=== PATIENT | female | born 1980 | race Asian ===

== ENCOUNTER 2020-09-22 13:37 | Inpatient (IN) ==
[2020-09-22] MEDS ORDERED: ACETAMINOPHEN 1,000 MG/100 ML VIAL IV STA (14:20)
[2020-09-22] MEDS ORDERED: SODIUM CHLORIDE 0.9% 1000ML 2,000 ML IV ONE (14:20)
[2020-09-22] MEDS ORDERED: KETOROLAC TROMETHAMINE 15 MG/ML VIAL IV STA (14:20)
[2020-09-22] MEDS ORDERED: FAMOTIDINE 20MG IV PUSH 20 MG/5 ML SYR IV STA (14:22)
[2020-09-22] MEDS ORDERED: guaiFENesin 600 MG TABCR PO STA (14:27)
[2020-09-22] MEDS ORDERED: IPRATROPIUM BROMIDE/ALBUTEROL respimat INH INH STA (14:27)
[2020-09-22 14:54] LABS: Appearance Urine Clear (Clear); Bacteria Urine Automated Negative (Negative); Bilirubin Urine Negative (Negative); Blood Urine 2+ (Negative); Color Urine Dark Yellow; Epithelial Cell Urine Auto >30 /lpf (0-5); Glucose Urine UA Negative (Negative); Ketones Urine 3+ (Negative); Leukocyte Esterase Urine Negative (Negative); Nitrite Urine Negative (Negative); Protein Urine 1+ (Negative); Specific Gravity Urine 1.023 (1.000-1.030); Urobilinogen Urine Negative (Negative); pH Urine 5.5 (4.5-7.5)
--- NOTE | 2020-09-22 15:00 | XRay Report ---
SINGLE VIEW CHEST CLINICAL HISTORY: Atypical chest pain. Breast cancer. Reported history of right middle lobe resectio n. FINDINGS: An AP, portable, upright chest radiograph is obtained No prior studies are available for co mparison at the time of dictation. The cardiomediastinal silhouette is unremarkable. There is postope rative change and volume loss consistent with the reported history of right middle lobe resection. rspace consolidation is present at the right lung base. No large pleural effusion or pneumothorax is identified. Nipple shadows project over both lung bases. The bony thorax is grossly intact. IMPRESSION: 1. Right basilar consolidation is typical for pneumonia. Clinical correlation will be required and ra diographic follow-up to resolution is recommended. 2. Postoperative change and volume loss is consistent with the reported history of right middle lobe resection. ACT 112: Negative or not required by law. Electronically signed by: Mathew Medina M.D. 09/22/2020 2:59 PM
[2020-09-22 16:06] LABS: Hematocrit (blood only) 37.9 % (37-47); Mean Corpuscular Hemoglobin 30.2 pg (25-34); Mean Corpuscular Hgb Conc 34.3 g/dL (32-36); Mean Corpuscular Volume 87.9 fL (80-100); Mean Platelet Volume 10.1 fL (7.4-10.4); Platelet Count 211 K/uL (130-400); RDW Coefficient of Variation 13.1 % (11.5-14.5); RDW Standard Deviation 42.5 fL (36.4-46.3); Red Blood Count 4.31 M/uL (4.2-5.4); White Blood Count 11.66 K/uL (4.8-10.8)
[2020-09-22 16:31] LABS: Pregnancy Test, Serum Negative (Negative)
--- NOTE | 2020-09-22 16:38 | Emergency Department Note ---
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 She denies any known COVID-19 exposures. She does report getting the COVID-19 vaccine 3 months ago. She reports she recently returned from a 2-month visit to [facility]. She reports while she was there she had a routine follow-up with her bid manager and had sputum culture performed which grew M. abscessus. The patient reports that they had recommended an antibiotic regimen which includes a macrolide, amikacin, BRISEIDA phase amine and imipenem which she was to arrange for treatment upon return to the . She reports she did not have symptoms at the time of her routine follow-up. She reports tightness and pain in her chest with coughing. She de nies any history of blood clots in her legs or lungs. She does report several months ago prior to leaving for [place] she did have tick exposures and was seen at urgent care and received a one-time dose of an antibiotic, presumably a prophylactic dose of doxycycline. On arrival patient is uncomfortable but no acute distress, febrile to 38.5 with heart rate in the 120s and vital signs otherwise stable. On exam the patient does have rhonchi of bilateral lower lung carvalho. Abdomen is benign. EKG without overt acute ischemia. CXR with right lower lobe consolidation. WBC 11.6K. H/H and platelets within normal limits. Chemistry without metabolic acidosis. Lactate 1.2, within normal limits. Phosphorus 1.4 with repletion initiated. Electrolytes otherwise without significant abnormality. LFTs unremarkable. Troponin negative/undetectable. Lipase not elevated. Procalcitonin is not elevated. UA without convincing evidence of infection. Lyme screen was negative. Anaplasma smear was also negative. COVID-19 PCR was negative. CTA of the chest was negative for PE. However note is made of "dense consolidation within the right lower lobe posteriorly with scattered tree-in-bud nodular opacities within the bilateral mid to lower lung zones and well as partial opacification the right lower lobe bronchi. Additional mild bilateral hilar lymphadenopathy is noted. Chronic bronchiectasis within the lingula. Given dense pneumonia in the setting of the patient's recent sputum culture reas onable admit the patient for IV antibiotics. Upon reevaluation the patient did report feeling somewhat improved after initial IV fluid hydration and antipyretics. Heart rate had improved and fever had defervesced. Patient is in agreement with plan for admission. Will initiate empiric antibiotics. Culture results obtained in [place] were reviewed with pharmacy and will proceed with treatment with cefoxitin, amikacin, and azithromycin until case can be discussed with infectious disease for additional recommendations. Case was discussed with Dr. [facility], who will evaluate the patient for admission. Triage Nursing notes reviewed and agree them. Prior medical records reviewed Vital Signs: reviewed and remarkable for fever/tachycardia. Differential diagnosis: Reactive airway disease, pneumonia, pneumothorax, COPD, CHF, infections, cardiac ischemia, pulmonary embolism, musculoskeletal, gastrointestinal, as well as other pathologies. ER treatment provided: See below. Diagnostics interpreted by me: ECG: Sinus tachycardia, 102 bpm, no ectopy, T wave inversions inferior and anterior laterally. No overt ST elevation or depression, QTC 450, QRS 74. No prior EKGs for comparison. Cardiac Monitoring: An order for continuous cardiac monitoring was placed and demonstrated sinus tachycardia, 102 bpm, no ectopy. Laboratory studies: See below Imaging studies: See below Consultation(s): Dr. [facility], who will evaluate the patient for admission. HPI: The patient is a pleasant 40-year-old woman with a past medical history of breast cancer on tamoxifen, bronchiectasis and MAC infection, history of lobectomy who presents to the emergency department for evaluation of cough, congestion, fevers and body aches over the past 5 days. She denies any known COVID-19 exposures. She does report getting the COVID-19 vaccine 3 months ago. She reports she recently returned from a 2-month visit to [facility]. She reports while she was there she had a routine follow-up with her bid manager and had sputum culture performed which grew M. abscessus. The patient reports that they had recommended an antibiotic regimen which includes a macrolide, amikacin, BRISEIDA phase amine and imipenem which she was to arrange for treatment upon return to the [place]. She reports she did not have symptoms at the time of her routine follow-up. She reports tightness and pain in her chest with coughing. She denies any history of blood clots in her legs or lungs. She does report several months ago prior to leaving for [place] she did have tick exposures and was seen at urgent care and received a one-time dose of an antibiotic, presumably a prophylactic dose of doxycycline. ROS: See above HPI for pertinent positives & negatives. A total of 10 systems reviewed and were otherwise negative. PAST MEDICAL HISTORY:See Below PAST SURGICAL HISTORY:See Below FAMILY HISTORY:See Below SOCIAL HISTORY:See Below HOME MEDICATIONS:See Below ALLERGIES:See Below VITALS:See Below PHYSICAL EXAMINATION: GENERAL: Awake, alert, fatigued-appearing, in no distress HENT: Normocephalic, atraumatic. Oropharynx with dry mucous membranes and otherwise unremarkable. EYES: Normal conjunctiva. Sclera non-icteric. NECK: Supple. No nuchal rigidity. FROM. No JVD. RESPIRATORY: Rhonchi of bilateral lower lung carvalho. CARDIAC: Tachycardic rate, normal rhythm. Extremities warm and well perfused. Pulses equal. ABDOMEN: Soft, non-distended. No tenderness to palpation. No rebound or guarding. No masses. RECTAL: Deferred. MUSCULOSKELETAL: Chest examination reveals no tenderness. The back is symmetrical on inspection without obvious abnormality. There is no CVA tenderness to palpation. No joint edema. LOWER EXTREMITIES: Calves are equal size bilaterally and non-tender. No edema. No discoloration. NEURO: Normal sensorium. No sensory or motor deficits noted. SKIN: No rash or jaundice noted. ED COURSE: Critical Care: I have personally spent greater than 35 minutes of critical care time in the direct management of this patient. This includes bedside care, interpretation of diagnostic studies, and testing, discussion with consultants, patient, and family members, and other required patient management activities. This 35 minutes is in excess of all separately billable procedures. Bertin Parkinson MD Past Med/Surg History Medical History Bronchiectasis Encounter for immunization History of MAC infection Surgical History History of left mastectomy History of lobectomy of lung Family History Father Colorectal cancer Aunt Uterine cancer paternal Grandfather (Maternal) Cancer Stomach Cancer Denies family history of Ovarian cancer Breast cancer Social History Smoking Status: Never smoker Hx Alcohol Use: No Hx Substance Use: No Feels Safe at Home: Yes Allergies Allergies Allergy/AdvReac Type Severity Reaction Status Date / Time No Known Allergies Allergy Verified 09/22/20 15:59 Home Meds Home Medications Medication Instructions Recorded Confirmed tamoxifen 20 mg tablet 20 mg PO DAILY 04/28/20 09/22/20 ascorbic acid (vitamin C) 1,000 mg 1 g PO DAILY 09/22/20 09/22/20 tablet (Vitamin C) cholecalciferol (vitamin D3) 125 125 mcg PO DAILY 09/22/20 09/22/20 mcg (5,000 unit) tablet (Vitamin D3) Results & Data (ED) Vital Signs Vital Signs - 24 hr 09/22/20 13:42 09/22/20 15:41 09/22/20 17:18 Temperature 38.5 C H 37.7 C H Temperature Source Temporal Artery Scan Oral Pulse Rate 121 H Pulse Rate [Finger] 113 H 99 H Pulse Rate from SpO2 Sensor Pulse Rhythm Regular Pulse Strength Normal Respiratory Rate 20 24 22 Respiratory Effort / Characteristics Non-Labored Respiratory Depth Normal Respiratory Pattern Regular Blood Pressure 121/71 Blood Pressure [Left Arm] 103/62 82/45 L Blood Pressure Mean 87 Blood Pressure Mean [Left Arm] 75 57 Blood Pressure Position Sitting Pulse Oximetry 93 96 93 Oxygen Delivery Method Room Air Room Air Room Air Sepsis Recent Fever Within 48 Hours Yes Sepsis New/Unexplained Change in Mental Status No Sepsis Action Taken by Nursing Physician Notified 09/22/20 18:01 09/22/20 19:00 09/22/20 19:19 Temperature Temperature Source Pulse Rate 90 Pulse Rate [Finger] 96 H Pulse Rate from SpO2 Sensor 90 Pulse Rhythm Pulse Strength Respiratory Rate 18 26 H Respiratory Effort / Characteristics Respiratory Depth Respiratory Pattern Blood Pressure 90/59 L 94/55 L Blood Pressure [Left Arm] 94/53 L Blood Pressure Mean 69 68 Blood Pressure Mean [Left Arm] 66 Blood Pressure Position Pulse Oximetry 91 97 Oxygen Delivery Method Room Air Sepsis Recent Fever Within 48 Hours Sepsis New/Unexplained Change in Mental Status Sepsis Action Taken by Nursing 09/22/20 20:00 Temperature 37.2 C Temperature Source Oral Pulse Rate Pulse Rate [Finger] 60 Pulse Rate from SpO2 Sensor Pulse Rhythm Pulse Strength Respiratory Rate Respiratory Effort / Characteristics Non-Labored Spontaneous Respiratory Depth Normal Respiratory Pattern Blood Pressure Blood Pressure [Left Arm] Blood Pressure Mean Blood Pressure Mean [Left Arm] Blood Pressure Position Pulse Oximetry 98 Oxygen Delivery Method Room Air Sepsis Recent Fever Within 48 Hours Sepsis New/Unexplained Change in Mental Status Sepsis Action Taken by Nursing Laboratory Data Attestation: I reviewed the patient's lab results. Result diagrams: 09/22/20 15:42 09/22/20 15:42 Lab Results 09/22/20 09/22/20 09/22/20 Range/Units 13:55 15:42 15:42 WBC 11.66 H (4.8-10.8) K/uL RBC 4.31 (4.2-5.4) M/uL Hgb 13.0 (12.0-16.0) g/dL Hct 37.9 (37-47) % MCV 87.9 (80-100) fL MCH 30.2 (25-34) pg MCHC 34.3 (32-36) g/dL RDW Std Deviation 42.5 (36.4-46.3) fL RDW Coeff of Caroline 13.1 (11.5-14.5) % Plt Count 211 (130-400) K/uL MPV 10.1 (7.4-10.4) fL Immature Gran % (Auto) 0.2 % Neut % (Auto) 87.7 % Lymph % (Auto) 9.8 % [place] % (Auto) 2.1 % Eos % (Auto) 0.1 % Baso % (Auto) 0.1 % Neut # (Auto) 10.23 H (1.4-6.5) K/uL Lymph # (Auto) 1.14 L (1.2-3.4) K/uL [place] # (Auto) 0.25 (0.11-0.59) K/uL Eos # (Auto) 0.01 (0-0.5) K/uL Baso # (Auto) 0.01 (0-0.2) K/uL Immature Gran # (Auto) 0.02 (0.00-0.02) K/uL Sodium 135 L (136-145) mmol/L Potassium 3.5 (3.5-5.1) mmol/L Chloride 107 (98-107) mmol/L Carbon Dioxide 21 (21-32) mmol/L Anion Gap 7.0 (3-11) BUN 13 (7-18) mg/dl Creatinine 0.68 (0.6-1.2) mg/dl Est Cr Clr Drug Dosing 89.4 ml/min Est GFR ( Amer) 127.7 ml/min Est GFR (Non-Af Amer) 110.2 ml/min BUN/Creatinine Ratio 19.0 (10-20) Glucose 93 (70-99) mg/dl Lactate (0.4-2.0) mmol/L Calcium 8.9 (8.5-10.1) mg/dl Phosphorus 1.4 L* (2.5-4.9) mg/dl Magnesium 2.1 (1.8-2.4) mg/dl Total Bilirubin 0.9 (0.2-1) mg/dl Direct Bilirubin 0.3 H (0-0.2) mg/dl AST 17 (15-37) U/L ALT 21 (12-78) U/L Alkaline Phosphatase 39 L (45-117) U/L Troponin I < 0.015 (0-0.045) ng/ml Total Protein 7.8 (6.4-8.2) gm/dl Albumin 3.5 (3.4-5.0) gm/dl Globulin 4.3 H (2.5-4.0) gm/dl Albumin/Globulin Ratio 0.8 L (0.9-2) Lipase 74 (73-393) U/L Procalcitonin (0-0.5) ng/ml HCG, Qual (Negative) Urine Color Dark Yellow Urine Appearance Clear (Clear) Urine pH 5.5 (4.5-7.5) Ur Specific [place] 1.023 (1.000-1.030) Urine Protein 1+ H (Negative) Urine Glucose (UA) Negative (Negative) Urine Ketones 3+ H (Negative) Urine Blood 2+ H (Negative) Urine Nitrite Negative (Negative) Urine Bilirubin Negative (Negative) Urine Urobilinogen Negative (Negative) Ur Leukocyte Esterase Negative (Negative) Urine WBC (Auto) 1-5 (0-5) /hpf Urine RBC (Auto) 5-10 H (0-4) /hpf U Hyaline Cast (Auto) 1-5 (0-5) /lpf U Epithel Cells (Auto) >30 H (0-5) /lpf Urine Bacteria (Auto) Negative (Negative) Anaplasma Smear See Comment Lyme Disease IgG Ab (Negative) Lyme Disease IgM Ab (Negative) COVID-19 Eval Order SARS-CoV-2 (PCR) (Negative) 09/22/20 09/22/20 09/22/20 Range/Units 15:42 15:42 15:45 WBC (4.8-10.8) K/uL RBC (4.2-5.4) M/uL Hgb (12.0-16.0) g/dL Hct (37-47) % MCV (80-100) fL MCH (25-34) pg MCHC (32-36) g/dL RDW Std Deviation (36.4-46.3) fL RDW Coeff of Caroline (11.5-14.5) % Plt Count (130-400) K/uL MPV (7.4-10.4) fL Immature Gran % (Auto) % Neut % (Auto) % Lymph % (Auto) % [place] % (Auto) % Eos % (Auto) % Baso % (Auto) % Neut # (Auto) (1.4-6.5) K/uL Lymph # (Auto) (1.2-3.4) K/uL [place] # (Auto) (0.11-0.59) K/uL Eos # (Auto) (0-0.5) K/uL Baso # (Auto) (0-0.2) K/uL Immature Gran # (Auto) (0.00-0.02) K/uL Sodium (136-145) mmol/L Potassium (3.5-5.1) mmol/L Chloride (98-107) mmol/L Carbon Dioxide (21-32) mmol/L Anion Gap (3-11) BUN (7-18) mg/dl Creatinine (0.6-1.2) mg/dl Est Cr Clr Drug Dosing ml/min Est GFR ( Amer) ml/min Est GFR (Non-Af Amer) ml/min BUN/Creatinine Ratio (10-20) Glucose (70-99) mg/dl Lactate (0.4-2.0) mmol/L Calcium (8.5-10.1) mg/dl Phosphorus (2.5-4.9) mg/dl Magnesium (1.8-2.4) mg/dl Total Bilirubin (0.2-1) mg/dl Direct Bilirubin (0-0.2) mg/dl AST (15-37) U/L ALT (12-78) U/L Alkaline Phosphatase (45-117) U/L Troponin I (0-0.045) ng/ml Total Protein (6.4-8.2) gm/dl Albumin (3.4-5.0) gm/dl Globulin (2.5-4.0) gm/dl Albumin/Globulin Ratio (0.9-2) Lipase (73-393) U/L Procalcitonin 0.29 Cancelled (0-0.5) ng/ml HCG, Qual Negative (Negative) Urine Color Urine Appearance (Clear) Urine pH (4.5-7.5) Ur Specific [place] (1.000-1.030) Urine Protein (Negative) Urine Glucose (UA) (Negative) Urine Ketones (Negative) Urine Blood (Negative) Urine Nitrite (Negative) Urine Bilirubin (Negative) Urine Urobilinogen (Negative) Ur Leukocyte Esterase (Negative) Urine WBC (Auto) (0-5) /hpf Urine RBC (Auto) (0-4) /hpf U Hyaline Cast (Auto) (0-5) /lpf U Epithel Cells (Auto) (0-5) /lpf Urine Bacteria (Auto) (Negative) Anaplasma Smear Lyme Disease IgG Ab Negative (Negative) Lyme Disease IgM Ab Negative (Negative) COVID-19 Eval Order Covid19 at [facility] SARS-CoV-2 (PCR) (Negative) 09/22/20 09/22/20 Range/Units 15:45 15:47 WBC (4.8-10.8) K/uL RBC (4.2-5.4) M/uL Hgb (12.0-16.0) g/dL Hct (37-47) % MCV (80-100) fL MCH (25-34) pg MCHC (32-36) g/dL RDW Std Deviation (36.4-46.3) fL RDW Coeff of Caroline (11.5-14.5) % Plt Count (130-400) K/uL MPV (7.4-10.4) fL Immature Gran % (Auto) % Neut % (Auto) % Lymph % (Auto) % [place] % (Auto) % Eos % (Auto) % Baso % (Auto) % Neut # (Auto) (1.4-6.5) K/uL Lymph # (Auto) (1.2-3.4) K/uL [place] # (Auto) (0.11-0.59) K/uL Eos # (Auto) (0-0.5) K/uL Baso # (Auto) (0-0.2) K/uL Immature Gran # (Auto) (0.00-0.02) K/uL Sodium (136-145) mmol/L Potassium (3.5-5.1) mmol/L Chloride (98-107) mmol/L Carbon Dioxide (21-32) mmol/L Anion Gap (3-11) BUN (7-18) mg/dl Creatinine (0.6-1.2) mg/dl Est Cr Clr Drug Dosing ml/min Est GFR ( Amer) ml/min Est GFR (Non-Af Amer) ml/min BUN/Creatinine Ratio (10-20) Glucose (70-99) mg/dl Lactate 1.2 (0.4-2.0) mmol/L Calcium (8.5-10.1) mg/dl Phosphorus (2.5-4.9) mg/dl Magnesium (1.8-2.4) mg/dl Total Bilirubin (0.2-1) mg/dl Direct Bilirubin (0-0.2) mg/dl AST (15-37) U/L ALT (12-78) U/L Alkaline Phosphatase (45-117) U/L Troponin I (0-0.045) ng/ml Total Protein (6.4-8.2) gm/dl Albumin (3.4-5.0) gm/dl Globulin (2.5-4.0) gm/dl Albumin/Globulin Ratio (0.9-2) Lipase (73-393) U/L Procalcitonin (0-0.5) ng/ml HCG, Qual (Negative) Urine Color Urine Appearance (Clear) Urine pH (4.5-7.5) Ur Specific [place] (1.000-1.030) Urine Protein (Negative) Urine Glucose (UA) (Negative) Urine Ketones (Negative) Urine Blood (Negative) Urine Nitrite (Negative) Urine Bilirubin (Negative) Urine Urobilinogen (Negative) Ur Leukocyte Esterase (Negative) Urine WBC (Auto) (0-5) /hpf Urine RBC (Auto) (0-4) /hpf U Hyaline Cast (Auto) (0-5) /lpf U Epithel Cells (Auto) (0-5) /lpf Urine Bacteria (Auto) (Negative) Anaplasma Smear Lyme Disease IgG Ab (Negative) Lyme Disease IgM Ab (Negative) COVID-19 Eval Order SARS-CoV-2 (PCR) NEGATIVE (Negative) Administered Medications Azithromycin 500 mg/ Dextrose 255 mls @ 127.5 mls/hr IV NOW STA Stop: 09/22/20 21:12 Last Admin: 09/22/20 19:58 Dose: 127.5 mls/hr Documented by: [id number] Lactated Ringer's (Lr) 1,000 mls @ 125 mls/hr IV .Q8H PORTER Stop: 10/22/20 19:14 Last Admin: 09/22/20 19:58 Dose: 125 mls/hr Documented by: [id number] Discontinued Medications Albuterol (Ipratropium Spencer/Albuterol Respimat Inh) 2 puffs INH NOW STA Stop: 09/22/20 14:28 Last Admin: 09/22/20 15:32 Dose: 2 puffs Documented by: [id number] Guaifenesin (Guaifenesin 600 Mg Tabcr) 600 mg PO NOW STA Stop: 09/22/20 14:28 Last Admin: 09/22/20 15:34 Dose: 600 mg Documented by: [id number] Sodium Chloride (Nss 1000ml) 2,000 mls @ 999 mls/hr IV .Q2H1M ONE Stop: 09/22/20 16:20 Last Infusion: 09/22/20 17:15 Dose: 0 mls/hr Documented by: [id number] Admin: 09/22/20 15:37 Dose: 999 mls/hr Documented by: [id number] Acetaminophen (Ofirmev) 1,000 mg in 100 mls @ 400 mls/hr IV NOW STA Stop: 09/22/20 14:34 Last Infusion: 09/22/20 15:59 Dose: 0 mls/hr Documented by: [id number] Admin: 09/22/20 15:34 Dose: 400 mls/hr Documented by: [id number] Famotidine (Pepcid 20mg Iv Push) 20 mg in 5 mls @ 2.5 mls/min IV NOW STA Stop: 09/22/20 14:23 Last Admin: 09/22/20 15:32 Dose: 2.5 mls/min Documented by: [id number] Potassium Phosphate 6 mmol/ (Sodium Chloride) 102 mls @ 88 mls/hr IV ONE ONE Stop: 09/22/20 18:39 Last Infusion: 09/22/20 19:59 Dose: 0 mls/hr Documented by: [id number] Admin: 09/22/20 18:27 Dose: 88 mls/hr Documented by: [id number] Lactated Ringer's (Lr) 1,000 mls @ 999 mls/hr IV .Q1H1M ONE Stop: 09/22/20 18:24 Last Infusion: 09/22/20 19:59 Dose: 0 mls/hr Documented by: [id number] Admin: 09/22/20 18:26 Dose: 999 mls/hr Documented by: [id number] Cefoxitin Sodium 2,000 mg/ (Dextrose) 60 mls @ 120 mls/hr IV NOW STA Stop: 09/22/20 19:41 Last Infusion: 09/22/20 20:32 Dose: 0 mls/hr Documented by: [id number] Admin: 09/22/20 19:58 Dose: 120 mls/hr Documented by: [id number] Amikacin Sulfate 765 mg/ (Dextrose) 253.06 mls @ 250 mls/hr IV NOW STA Stop: 09/22/20 20:13 Last Admin: 09/22/20 20:35 Dose: 250 mls/hr Documented by: [id number] Ioversol (Optiray 320 125ml) 119 ml IV ONCE ONE Stop: 09/22/20 17:21 Last Admin: 09/22/20 17:20 Dose: 1 ml Documented by: [id number] Ketorolac Tromethamine (Ketorolac Tromethamine 15 Mg/Ml Vial) 15 mg IV NOW STA Stop: 09/22/20 14:21 Last Admin: 09/22/20 15:34 Dose: 15 mg Documented by: [id number] Potassium Phosphate (Pot Phosphate Monobasic W/ Sod Tab) 2 tab PO NOW STA Stop: 09/22/20 17:11 Last Admin: 09/22/20 18:00 Dose: 2 tab Documented by: [id number] Imaging Data Radiologist's Impression: Chest X-Ray 09/22/20 14:21 SINGLE VIEW CHEST CLINICAL HISTORY: Atypical chest pain. Breast cancer. Reported history of right middle lobe resection. FINDINGS: An AP, portable, upright chest radiograph is obtained No prior studies are available for comparison at the time of dictation. The cardiomediastinal silhouette is unremarkable. There is postoperative change and volume loss consistent with the reported history of right middle lobe resection. Airspace consolidation is present at the right lung base. No large pleural effusion or pneumothorax is identified. Nipple shadows project over both lung bases. The bony thorax is grossly intact. IMPRESSION: 1. Right basilar consolidation is typical for pneumonia. Clinical correlation will be required and radiographic follow-up to resolution is recommended. 2. Postoperative change and volume loss is consistent with the reported history of right middle lobe resection. ACT 112: Negative or not required by law. Electronically signed by: Mathew Medina M.D. 09/22/2020 2:59 PM Chest CTA 09/22/20 14:24 CHEST CTA for PULMONARY ARTERIES CT DOSE: 257.93 mGy.cm HISTORY: fevers, cough, mucus, cp, h/o MAC, BRCA, r/o PE TECHNIQUE: Multiaxial CT images of the chest were performed following the intravenous administration of contrast to evaluate the pulmonary arteries. Maximal intensity projection images were also obtained. A dose lowering technique was utilized adhering to the principles of ALARA. COMPARISON STUDY: Chest 09/22/2020. FINDINGS: Normal caliber thoracic aorta with no evidence for dissection. The heart is normal in size. No pleural or pericardial effusions. No filling defects within the pulmonary arteries to suggest a pulmonary embolus. No suspicious lytic or blastic osseous lesions. Limited views of the upper abdomen demonstrate a normal liver and spleen. The adrenal glands unremarkable. The heart is normal in size. Normal esophagus. Evidence for a partial left mastectomy. A few mildly enlarged bilateral hilar lymph nodes most pronounced on the right. Dominant right hilar lymph node measures 1.4 cm. These may be reactive. There is dense consolidation within the right lower lobe posteriorly with scattered tree-in-bud nodular opacities seen within the bilateral mid to lower lung zones. No pneumothorax. Postoperative changes consistent with a prior right middle lobectomy. Remaining central airways are patent. Bronchiectasis seen within the lingula consistent with chronic change. Partial opacification of the right lower lobe bronchi. Mild central bronchial wall thickening. IMPRESSION: 1. No evidence for pulmonary embolus. 2. Dense consolidation within the right lower lobe posteriorly with scattered tree-in-bud nodular opacities within the bilateral mid to lower lung zones. This is consistent with a pneumonia. There is also partial opacification the right lower lobe bronchi. 3. Prior right middle lobectomy. 4. Mild bilateral hilar lymphadenopathy, right greater than left. This is likely reactive. Consider six-month chest CT follow-up to ensure resolution. 5. Bronchiectasis within the lingula which is likely chronic. 6. Additional findings as described above. ACT 112: Negative or not required by law. Electronically signed by: John Waller M.D. 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 Forms Stand Alone Forms: [facility] [employer] Prescriptions Prescriptions: No Action tamoxifen 20 mg tablet 20 mg PO DAILY RF: 0 ascorbic acid (vitamin C) [Vitamin C] 1,000 mg Tablet 1 g PO DAILY RF: 0 cholecalciferol (vitamin D3) [Vitamin D3] 125 mcg (5,000 unit) Tablet 125 mcg PO DAILY RF: 0 Referrals Referrals: PCP,NO [Primary Care Provider] - Discharge Problem: Pneumonia Qualifiers: Pneumonia type: due to unspecified organism Laterality: bilateral Lung location: lower lobe of lung Qualified Code(s): J18.9 - Pneumonia, unspecified organism Bronchiectasis Qualifiers: Bronchiectasis type: with acute exacerbation Qualified Code(s): J47.1 - Bronchiectasis with (acute) exacerbation
[2020-09-22 16:50] LABS: Basophils # (auto) 0.01 K/uL (0-0.2); Basophils % (auto) 0.1 %; Eosinophils # (auto) 0.01 K/uL (0-0.5); Eosinophils % (auto) 0.1 %; Immature Granulocytes # (auto) 0.02 K/uL (0.00-0.02); Immature Granulocytes % (auto) 0.2 %; Lymphocytes # (auto) 1.14 K/uL (1.2-3.4); Lymphocytes % (auto) 9.8 %; Monocytes # (auto) 0.25 K/uL (0.11-0.59); Monocytes % (auto) 2.1 %; Neutrophils # (auto) 10.23 K/uL (1.4-6.5); Neutrophils % (auto) 87.7 %
[2020-09-22 16:51] LABS: Procalcitonin 0.29 ng/ml (0-0.5)
[2020-09-22 16:57] LABS: Lyme Ab IgG w/WB Rflx Negative (Negative); Lyme Ab IgM w/WB Rflx Negative (Negative)
[2020-09-22 17:06] LABS: Alanine Aminotransferase 21 U/L (12-78); Albumin Globulin Ratio 0.8 (0.9-2); Albumin Level 3.5 gm/dl (3.4-5.0); Alkaline Phosphatase 39 U/L (45-117); Aspartate Aminotransferase 17 U/L (15-37); Bilirubin Direct 0.3 mg/dl (0-0.2); Bilirubin,Total 0.9 mg/dl (0.2-1); Blood Urea Nitrogen 13 mg/dl (7-18); Calcium 8.9 mg/dl (8.5-10.1); Carbon Dioxide 21 mmol/L (21-32); Chloride 107 mmol/L (98-107); Creatinine Clr Calc Pharmacy 89.4 ml/min; Est GFR (African American) 127.7 ml/min; Est GFR (Non-African American) 110.2 ml/min; Globulin 4.3 gm/dl (2.5-4.0); Glucose 93 mg/dl (70-99); Lipase 74 U/L (73-393); Magnesium 2.1 mg/dl (1.8-2.4); Phosphorus 1.4 mg/dl (2.5-4.9); Potassium 3.5 mmol/L (3.5-5.1); Sodium 135 mmol/L (136-145); Total Protein 7.8 gm/dl (6.4-8.2); Troponin I < 0.015 ng/ml (0-0.045)
[2020-09-22] MEDS ORDERED: POT PHOSPHATE MONOBASIC W/ SOD TAB PO STA (17:10)
[2020-09-22] MEDS ORDERED: POTASSIUM PHOS 3 MMOL/1 ML INFUSION IV STA (17:10)
[2020-09-22] MEDS ORDERED: OPTIRAY 320 125ml IV ONE (17:20)
[2020-09-22] MEDS ORDERED: LACTATED RINGER'S 1,000 ML IV ONE (17:24)
[2020-09-22] MEDS ORDERED: POTASSIUM PHOSPHATE 6 MMOL in 0.9 % SODIUM CHLORIDE 100 ML IV ONE (17:30)
--- NOTE | 2020-09-22 17:48 | Electrocardiogram Report ---
Test Reason : Blood Pressure : / mmHG Vent. Rate : 102 BPM Atrial Rate : 102 BPM P-R Int : 144 ms QRS Dur : 074 ms QT Int : 346 ms P-R-T Axes : -02 068 -60 degrees QTc Int : 450 ms Sinus tachycardia T wave abnormality, consider inferior ischemia T wave abnormality, consider anterolateral ischemia Abnormal ECG No previous ECGs available Confirmed by Vinod Padron ([id number]) on 09/22/2020 5:47:28 PM Referred By: REFERRED SELF Confirmed By:Braxton Padron
--- NOTE | 2020-09-22 18:45 | CT Scan Report ---
CHEST CTA for PULMONARY ARTERIES CT DOSE: 257.93 mGy.cm HISTORY: fevers, cough, mucus, cp, h/o MAC, BRCA, r/o PE TECHNIQUE: Multiaxial CT images of the chest were performed following the intravenous administration of contrast to evaluate the pulmonary arteries. Maximal intensity projection images were also obtaine d. A dose lowering technique was utilized adhering to the principles of ALARA. COMPARISON STUDY: Chest 09/22/2020. FINDINGS: Normal caliber thoracic aorta with no evidence for dissection. The heart is normal in size. No pleural or pericardial effusions. No filling defects within the pulmonary arteries to suggest a p ulmonary embolus. No suspicious lytic or blastic osseous lesions. Limited views of the upper abdomen demonstrate a normal liver and spleen. The adrenal glands unremarkable. The heart is normal in size. Normal esophagus. Evidence for a partial left mastectomy. A few mildly enlarged bilateral hilar lymph nodes most pronounced on the right. Dominant right hilar lymph node measures 1.4 cm. These may be re active. There is dense consolidation within the right lower lobe posteriorly with scattered tree-in-b ud nodular opacities seen within the bilateral mid to lower lung zones. No pneumothorax. Postoperativ e changes consistent with a prior right middle lobectomy. Remaining central airways are patent. Bronc hiectasis seen within the lingula consistent with chronic change. Partial opacification of the right lower lobe bronchi. Mild central bronchial wall thickening. IMPRESSION: 1. No evidence for pulmonary embolus. 2. Dense consolidation within the right lower lobe posteriorly with scattered tree-in-bud nodular opa cities within the bilateral mid to lower lung zones. This is consistent with a pneumonia. There is al so partial opacification the right lower lobe bronchi. 3. Prior right middle lobectomy. 4. Mild bilateral hilar lymphadenopathy, right greater than left. This is likely reactive. Consider s ix-month chest CT follow-up to ensure resolution. 5. Bronchiectasis within the lingula which is likely chronic. 6. Additional findings as described above. ACT 112: Negative or not required by law. Electronically signed by: John Waller M.D. 09/22/2020 6:43 PM
[2020-09-22] MEDS ORDERED: cefOXitin 2,000 MG in DEXTROSE 5% 50 ML IV STA (19:12)
[2020-09-22] MEDS ORDERED: AMIKACIN SULFATE IV STA (19:13)
[2020-09-22] MEDS ORDERED: DEXTROSE 5% IV STA (19:13)
[2020-09-22] MEDS ORDERED: AZITHROMYCIN 500 MG in DEXTROSE 5% 250 ML IV STA (19:13)
[2020-09-22] MEDS ORDERED: LACTATED RINGER'S 1,000 ML IV SCH (19:15)
--- NOTE | 2020-09-22 20:19 | History & Physical Report ---
Date of Service September 22, 2020 Assessment & Plan (1) Pneumonia: (2) Bronchiectasis: (3) History of MAC infection: (4) Hypophosphatemia: (5) Breast cancer: Plan: HPI, PMH, PE completed by Adelita Blake PA-C Assessment and plan per Dr. Marie. See addendum. History of Present Illness Chief Complaint: Cough Primary Care Provider: NO PCP Patient is a 40-year-old female with PMH left breast cancer s/p left mastectomy, on tamoxifen, bronchiectasis s/p right lobectomy, H/O MAC infection presented to ER with complaint of cough and fever x5 days. Patient reports in August had followed up with her riveter pneumatic in [place] for routine appointment and at that time had expectorated sputum culture. She reports was in [place] for 2 months. Patient states was asymptomatic at time. 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 Patient states was feeling fine until 5 days ago when had onset of fever up to 39.5C, productive cough with green, blood-tinged sputum, and body aches. She was taking Tylenol for fever. Patient denies chest pain. She denies history of COVID-19 infection. Reports had [employer] COVID-19 vaccine in March and April 2020. Denies any known ill contacts. Denies, N/V/D/C, KRAMER, dizziness, syncope, vision changes, neck pain, CP, SOB, orthopnea, palpitations, cough, sore throat, choking, otalgia, abdominal pain, paresthesias, weakness, extremity weakness, extremity edema, rashes, urinary symptoms. Denies h/o DVT/PE. Allergies Allergy/AdvReac Type Severity Reaction Status Date / Time No Known Allergies Allergy Verified 09/22/20 15:59 Home Medications Medication Instructions Recorded Confirmed Type tamoxifen 20 mg tablet 20 mg PO DAILY 04/28/20 09/22/20 History ascorbic acid (vitamin C) 1,000 mg 1 g PO DAILY 09/22/20 09/22/20 History tablet (Vitamin C) cholecalciferol (vitamin D3) 125 125 mcg PO DAILY 09/22/20 09/22/20 History mcg (5,000 unit) tablet (Vitamin D3) Past Med/Surg History Medical History Bronchiectasis Encounter for immunization History of MAC infection Surgical History History of left mastectomy History of lobectomy of lung Family History Father Colorectal cancer Aunt Uterine cancer paternal Grandfather (Maternal) Cancer Stomach Cancer Denies family history of Ovarian cancer Breast cancer Social History Smoking Status: Never smoker Hx Alcohol Use: No Hx Substance Use: No Feels Safe at Home: Yes Review of Systems Review of Systems: All systems reviewed & are unremarkable except as noted in HPI & below Physical Exam Physical Exam: General: no distress, WDWN Head: normocephalic, atraumatic Eyes: PERRL, EOM's intact, conjunctiva non-injected, anicteric ENT: normal inspection external ears, nose, mucous membranes mildly dry Neck: supple, trachea midline, non-tender Lungs: no respiratory distress, able to speak in sentences, +diminished breath sounds mid to lower right lung, +rhonchi bases CV: RRR, no murmur, no pretibial edema Abd: normal BS, soft, non-tender Ext: no cyanosis, no erythema, no calf tenderness Neuro: A&O x 3, no focal deficits noted, normal affect Skin: warm, dry Results & Data Results & Data ([facility]) Vital Signs (Past 12 Hours) Vital Signs Temp Pulse Pulse Resp BP BP Pulse Ox 09/22/20 20:00 37.2 C 60 98 09/22/20 19:19 94/55 L 09/22/20 19:00 90 26 H 90/59 L 97 09/22/20 18:01 96 H 18 94/53 L 91 09/22/20 17:18 37.7 C H 99 H 22 82/45 L 93 09/22/20 15:41 113 H 24 103/62 96 09/22/20 13:42 38.5 C H 121 H 20 121/71 93 Laboratory Results Short CBC 09/22/20 Range/Units 15:42 WBC 11.66 H (4.8-10.8) K/uL Hgb 13.0 (12.0-16.0) g/dL Hct 37.9 (37-47) % Plt Count 211 (130-400) K/uL BMP 09/22/20 15:42 Sodium 135 L Potassium 3.5 Chloride 107 Carbon Dioxide 21 BUN 13 Creatinine 0.68 Glucose 93 Calcium 8.9 Cardiac Enzymes 09/22/20 Range/Units 15:42 Troponin I < 0.015 (0-0.045) ng/ml Liver Function 09/22/20 Range/Units 15:42 Total Bilirubin 0.9 (0.2-1) mg/dl Direct Bilirubin 0.3 H (0-0.2) mg/dl AST 17 (15-37) U/L ALT 21 (12-78) U/L Alkaline Phosphatase 39 L (45-117) U/L Albumin 3.5 (3.4-5.0) gm/dl Urine 09/22/20 Range/Units 13:55 Urine Color Dark Yellow Urine Appearance Clear (Clear) Urine pH 5.5 (4.5-7.5) Ur Specific [place] 1.023 (1.000-1.030) Urine Protein 1+ H (Negative) Urine Glucose (UA) Negative (Negative) Diagnostic Findings Chest X-Ray 09/22/20 14:21 SINGLE VIEW CHEST CLINICAL HISTORY: Atypical chest pain. Breast cancer. Reported history of right middle lobe resection. FINDINGS: An AP, portable, upright chest radiograph is obtained No prior studies are available for comparison at the time of dictation. The cardiomediastinal silhouette is unremarkable. There is postoperative change and volume loss consistent with the reported history of right middle lobe resection. Airspace consolidation is present at the right lung base. No large pleural effusion or pneumothorax is identified. Nipple shadows project over both lung bases. The bony thorax is grossly intact. IMPRESSION: 1. Right basilar consolidation is typical for pneumonia. Clinical correlation will be required and radiographic follow-up to resolution is recommended. 2. Postoperative change and volume loss is consistent with the reported history of right middle lobe resection. ACT 112: Negative or not required by law. Electronically signed by: Mathew Medina M.D. 09/22/2020 2:59 PM Chest CTA 09/22/20 14:24 CHEST CTA for PULMONARY ARTERIES CT DOSE: 257.93 mGy.cm HISTORY: fevers, cough, mucus, cp, h/o MAC, BRCA, r/o PE TECHNIQUE: Multiaxial CT images of the chest were performed following the intravenous administration of contrast to evaluate the pulmonary arteries. Maximal intensity projection images were also obtained. A dose lowering technique was utilized adhering to the principles of ALARA. COMPARISON STUDY: Chest 09/22/2020. FINDINGS: Normal caliber thoracic aorta with no evidence for dissection. The heart is normal in size. No pleural or pericardial effusions. No filling defects within the pulmonary arteries to suggest a pulmonary embolus. No suspicious lytic or blastic osseous lesions. Limited views of the upper abdomen demonstrate a normal liver and spleen. The adrenal glands unremarkable. The heart is normal in size. Normal esophagus. Evidence for a partial left mastectomy. A few mildly enlarged bilateral hilar lymph nodes most pronounced on the right. Dominant right hilar lymph node measures 1.4 cm. These may be reactive. There is dense consolidation within the right lower lobe posteriorly with scattered tree-in-bud nodular opacities seen within the bilateral mid to lower lung zones. No pneumothorax. Postoperative changes consistent with a prior right middle lobe ctomy. Remaining central airways are patent. Bronchiectasis seen within the lingula consistent with chronic change. Partial opacification of the right lower lobe bronchi. Mild central bronchial wall thickening. IMPRESSION: 1. No evidence for pulmonary embolus. 2. Dense consolidation within the right lower lobe posteriorly with scattered tree-in-bud nodular opacities within the bilateral mid to lower lung zones. This is consistent with a pneumonia. There is also partial opacification the right lower lobe bronchi. 3. Prior right middle lobectomy. 4. Mild bilateral hilar lymphadenopathy, right greater than left. This is likely reactive. Consider six-month chest CT follow-up to ensure resolution. 5. Bronchiectasis within the lingula which is likely chronic. 6. Additional findings as described above. ACT 112: Negative or not required by law. Electronically signed by: John Waller M.D. 09/22/2020 6:43 PM Supervising Physician Co-Signing Physician Notes IM ATTENDING : Patient seen and examined. History obtained from patient and records. Preceding documentation by Ms. Adelita Blake PA-C reviewed. In addition : Work-up at [facility] as follows Outpatient chest CT (08/07/20): Progressive bronchiectasis and centrilobular nodules left greater than the right Sputum CS grew Mycobacterium abscessus (08/14/20): Mycobacterium abscessus (drug susceptibility testing not reported at time of report) FINAL ASSESSMENT AND PLAN as follows : Sepsis secondary to pneumonia hx bronchiectasis status post surgery Outpatient sputum CS from last month grew Mycobacterium abscessus Hemoptysis secondary to above Breast cancer status post surgery on tamoxifen Medical telemetry CS, Cefoxitin, Azithromycin, Doxycycline for now [facility] ID consultation Re: Pneumonia (hx bronchiectasis, Mycobacterium abscessus on outpatient sputum CS) Pulmonology consult Re: Hemoptysis DVT prophylaxis. SCDs Re: Hemoptysis Full code Text document was generated using [employer] voice recognition software. It may contain grammatical or spelling errors. Kindly contact undersigned for clarification of any documentation item in question.
[2020-09-22] MEDS ORDERED: ALBUT/IPRATROP 3MG/0.5MG NEB 3 ML VIAL NEB STA (21:47)
[2020-09-23] MEDS ORDERED: ACETAMINOPHEN 325 MG TAB ONE (01:22)
[2020-09-23] MEDS ORDERED: ACETAMINOPHEN 325 MG TAB PO PRN (02:35)
[2020-09-23] MEDS ORDERED: PROMETHAZINE HCL 6.25 MG in SODIUM CHLORIDE 0.9% 50 ML IV PRN (02:35)
[2020-09-23] MEDS ORDERED: XOPENEX/ATROVENT 1.25mg/0.5MG NEB COMBO NEB PRN (02:35)
[2020-09-23] MEDS ORDERED: POTASSIUM PHOS 3 MMOL/1 ML INFUSION IV STA (02:35)
[2020-09-23] MEDS ORDERED: BENZONATATE 100 MG CAPSULE PO PRN (02:35)
[2020-09-23] MEDS ORDERED: POTASSIUM PHOSPHATE 15 MMOL in SODIUM CHLORIDE 0.9% 250 ML IV ONE (03:00)
[2020-09-23] MEDS ORDERED: POTASSIUM CHLORIDE 40 MEQ in SODIUM CHLORIDE 0.9% 1000ML 1,000 ML IV ONE (03:00)
[2020-09-23] MEDS ORDERED: AMIKACIN CONSULT ACTIVE PRN (06:23)
[2020-09-23] MEDS ORDERED: [UNRECOGNIZED DRUG - OTHER] PRN (06:23)
[2020-09-23] MEDS ORDERED: cefOXitin 2,000 MG in DEXTROSE 5% 50 ML IV SCH (06:30)
[2020-09-23 07:16] LABS: Basophils # (auto) 0.01 K/uL (0-0.2); Basophils % (auto) 0.1 %; Eosinophils # (auto) 0.02 K/uL (0-0.5); Eosinophils % (auto) 0.3 %; Hematocrit (blood only) 30.9 % (37-47); Hemoglobin 10.6 g/dL (12.0-16.0); Immature Granulocytes # (auto) 0.01 K/uL (0.00-0.02); Immature Granulocytes % (auto) 0.1 %; Lymphocytes # (auto) 1.71 K/uL (1.2-3.4); Lymphocytes % (auto) 24.4 %; Mean Corpuscular Hemoglobin 30.3 pg (25-34); Mean Corpuscular Hgb Conc 34.3 g/dL (32-36); Mean Corpuscular Volume 88.3 fL (80-100); Mean Platelet Volume 9.9 fL (7.4-10.4); Monocytes # (auto) 0.29 K/uL (0.11-0.59); Monocytes % (auto) 4.1 %; Neutrophils # (auto) 4.97 K/uL (1.4-6.5); Platelet Count 195 K/uL (130-400); RDW Coefficient of Variation 13.4 % (11.5-14.5); RDW Standard Deviation 43.3 fL (36.4-46.3); White Blood Count 7.01 K/uL (4.8-10.8)
[2020-09-23 07:54] LABS: BUN Creatinine Ratio 15.5 (10-20); Blood Urea Nitrogen 6 mg/dl (7-18); Calcium 7.5 mg/dl (8.5-10.1); Carbon Dioxide 20 mmol/L (21-32); Chloride 114 mmol/L (98-107); Creatinine Clr Calc Pharmacy 152.4 ml/min; Est GFR (African American) > 150.0 ml/min; Est GFR (Non-African American) 130.1 ml/min; Glucose 92 mg/dl (70-99); Phosphorus 2.8 mg/dl (2.5-4.9); Potassium 3.7 mmol/L (3.5-5.1); Sodium 140 mmol/L (136-145)
[2020-09-23] MEDS: TAMOXIFEN CITRATE 10 MG TABLET PO SCH (07:56)
[2020-09-23 08:52] LABS: Ferritin 138.8 ng/ml (8-388)
[2020-09-23] MEDS ORDERED: AZITHROMYCIN 250 MG TAB PO SCH (09:00)
--- NOTE | 2020-09-23 09:28 | Pharmacy Report ---
Pharmacy Abx Initial Consult - Date of Service September 23, 2020 - Pharmacy Dosing Scope Date of Consult: 09/23/20 Consultation requested by: Dr. Marie Pharmacy is consulted to initiate amikacin & cefoxitin IV dosing therapy, order appropriate labs and adjust drug dose/frequency. - Subjective The patient is a 40 year old F admitted on 09/22/20 21:03. - Objective Height: 5 ft 3 in Weight: 53.7 kg Vital Signs (Past 12hrs): Vital Signs Temp Pulse Pulse Resp BP BP BP 09/23/20 07:34 37.2 C 82 16 86/51 L 09/23/20 05:45 77 18 82/56 L 09/23/20 05:24 99 H 09/23/20 02:35 37.6 C H 96 H 20 88/50 L 09/23/20 01:43 37.1 C 87 16 101/67 09/23/20 01:24 92 H 20 92/53 L 09/23/20 01:00 102 H 30 H 93/46 L 09/23/20 00:00 90 28 H 92/56 L 09/22/20 23:00 88 30 H 95/56 L 09/22/20 22:00 87 18 81/53 L 09/22/20 21:57 92 H 18 09/22/20 21:54 89 29 H 09/22/20 21:30 85 22 104/65 Pulse Ox Pulse Ox 09/23/20 07:34 94 09/23/20 05:45 93 09/23/20 05:24 09/23/20 02:35 92 92 09/23/20 01:43 98 09/23/20 01:24 93 09/23/20 01:00 93 09/23/20 00:00 94 09/22/20 23:00 94 09/22/20 22:00 99 09/22/20 21:57 92 09/22/20 21:54 92 09/22/20 21:30 93 Lab Results (24hrs): Laboratory Tests (24 Hours) 09/23/20 09/23/20 09/22/20 06:45 06:45 15:42 WBC 7.01 Neut # (Auto) 4.97 Creatinine 0.41 L Est Cr Clr Drug Dosing 152.4 Procalcitonin Cancelled 09/22/20 09/22/20 09/22/20 15:42 15:42 15:42 WBC 11.66 H Neut # (Auto) 10.23 H Creatinine 0.68 Est Cr Clr Drug Dosing 89.4 Procalcitonin 0.29 Micro Results: 09/22/20 15:47 Aerobic Blood Culture - Pending Blood Anaerobic Blood Culture - Pending 09/22/20 15:42 Aerobic Blood Culture - Pending Blood Anaerobic Blood Culture - Pending - Risk Factors for Resistance * History of infection with a multidrug-resistant organism: [MAC] - Assessment & Plan Assessment 40 year old F with a history of breast cancer s/p L mastectomy, bronchiectasis s/p R lobectomy, and history of MAC infection presents w/ cough and fever X 5 days. Recent travel to [place] X 2 months. Pt had follow up with her electrician telephone in [place] and sputum culture (+) Mycobacterium abscessus per report. Amikacin, azithromycin, and cefoxitin combination regimen initiated for treatment of Mycobacterium abscessus pulmonary infection. ID and Pulm consulted. No significant leukocytosis, Tmax-38.5, PCT-0.29. Renal function is stable with estimated CrCL >100mL/min. Plan Amikacin * Patient meets criteria for extended-interval aminoglycoside dosing per the [place] nomogram * Dose: 780 mg (15 mg/kg) IV every 24 hours for CrCl >60mL/min * Random level ordered for 10 hours after the start of the infusion to ensure dosing interval is appropriate. Amikacin level is sendout, and pending at this time. Cefoxitin * 2gm IV q8h for CrCl > 30mL/min for Mycobacterial Non-TB infection Pharmacy will continue to follow and will adjust dose/frequency as necessary. Thank you.
[2020-09-23 09:38] LABS: Folate (Folic Acid) 11.4 ng/ml (>5.38)
[2020-09-23] MEDS ORDERED: PIPERACILL/TAZOBAC CONSULT ACTIVE PRN (13:45)
[2020-09-23] MEDS ORDERED: VANCOMYCIN CONSULT ACTIVE PRN (13:45)
--- NOTE | 2020-09-23 13:47 | Pulmonary Consultation ---
Date of Consultation September 23, 2020 Assessment & Plan (1) Pneumonia: Laterality: bilateral Lung location: lower lobe of lung Pneumonia type: due to unspecified organism Qualified Code(s): J18.9 - Pneumonia, unspecified organism (2) Bronchiectasis: Bronchiectasis type: with acute exacerbation Qualified Code(s): J47.1 - Bronchiectasis with (acute) exacerbation Impression: 40-year-old female with prior history of Mycobacterium avium complex and now history of Mycobacterium abscessus identified from sputum culture in [place]. Her CT scan shows multifocal infiltrates with some associated bronchiectasis. Recommendations: 1. Pneumonia: Recommend treating the patient for community-acquired pneumonia in a patient with a structurally abnormal lung disease as well as obtaining sputum cultures. See comments below regarding the Mycobacterium abscessus. At this point time would recommend transitioning her to vancomycin and Zosyn until we prove that this is not Pseudomonas or staph. 2. Mycobacterium abscessus: Unclear how much of the current case is related to this nontuberculous mycobacterial infection or not. I recommend obtaining repeat cultures and getting a susceptibility analysis given the fact that she has been treated in the past. Treatment for this is not typically acute so I do not think she needs amikacin and the other antibiotics. In addition, consultation with a dedicated infectious disease expert would be required to manage these antibiotics in the long-term. Treatment for these rapid growers should be conducted in a multidisciplinary approach with the facility that is facile in treating these infections. We do not have infectious disease or thoracic surgery available here so would recommend that she be followed at a tertiary facility such as [facility] or [facility] more local or consider referral to [facility] or [facility] who have centers of excellence for nontuberculous mycobacterial disease. 3. Bronchiectasis: Unclear what evaluation has been conducted in the past. Ideally I would like to see copies of her prior CT scans and what work-up she has had from her radial drill press set up operator. Would specifically be interested in whether or not she was assessed for cystic fibrosis, alpha-1 antitrypsin deficiency, or primary ciliary dyskinesia. This work-up does not need to take place when the patient is an inpatient and should be deferred until she is in a clinically stable condition. In addition would not want to pursue evaluation if the results are already available. Patient is not having issues with pulmonary clearance currently. Could consider addition of flutter valve and vest therapy as well as hypertonic saline if pulmonary clearance would become an issue. 4. ID consultation has been requested and is currently pending. Above recommendations were discussed with patient at bedside. History of Present Illness Attending Physician: Lisandro Collazo MD History of Present Illness Asked by hospitalist to evaluate this patient with pneumonia and a history of nontuberculous mycobacterial infection with associated bronchiectasis. History is obtained from discussion with the patient as well as review the electronic medical record. Patient is a 40-year-old Bengali female with a prior history of breast cancer. She states she underwent a right middle lobectomy in [place] about 10 years ago for reasons that she cannot really elucidate. She states that she did not have an infection at that point time. Sometime thereafter she was diagnosed with My cobacterium avium complex infection and apparently was treated with antibiotics for 3 years although she cannot recall which antibiotics. We do not have any records from that evaluation to review nor is there any imaging available to review. The patient reportedly was followed in [place] clinically and off antibiotics was stable up until about a month ago. She then developed fevers chills and night sweats. 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 The patient returned to the [facility] as no therapy was initiated in [place] but her radial drill press set up operator in [place] considered initiation of triple drug therapy. The patient presented to the emergency room yesterday with complaints of a cough productive of green phlegm subjective fevers night sweats and myalgias. CT scan was performed which revealed consolidation within the right lower lobe as well as tree-in-bud opacities and bronchiectasis within the lingula and residual anterior segment of the right upper lobe. Sputum culture and AFB cultures have been ordered but have not yet been obtained. The patient was initiated on amikacin, azithromycin, cefoxitin and ID consultation was obtained. The patient reports that her cough is now transitioned to some pinkish phlegm but she is not had any max mopped assist. She denies any chest pain. Allergies Allergy/AdvReac Type Severity Reaction Status Date / Time No Known Allergies Allergy Verified 09/22/20 15:59 Home Medications Medication Instructions Recorded Confirmed Type tamoxifen 20 mg tablet 20 mg PO DAILY 04/28/20 09/22/20 History ascorbic acid (vitamin C) 1,000 mg 1 g PO DAILY 09/22/20 09/22/20 History tablet (Vitamin C) cholecalciferol (vitamin D3) 125 125 mcg PO DAILY 09/22/20 09/22/20 History mcg (5,000 unit) tablet (Vitamin D3) Patient History Medical History Bronchiectasis Encounter for immunization History of MAC infection Surgical History History of left mastectomy History of lobectomy of lung Family History Father Colorectal cancer Aunt Uterine cancer paternal Grandfather (Maternal) Cancer Stomach Cancer Denies family history of Ovarian cancer Breast cancer Social History Smoking Status: Never smoker Hx Alcohol Use: No Hx Substance Use: No Current Living Situation: Alone Feels Safe at Home: Yes Assistive Devices: None Review of Systems Review of Systems: Please refer to the hospitalist admission H&P. No additions or deletions Physical Exam Constitutional: + thin; no acute distress Neck: trachea midline, no thyromegaly Respiratory: normal respiratory effort, lungs clear to auscultation Cardiovascular: RRR, no murmur, no edema Gastrointestinal (Abdomen): normal bowel sounds, soft, nontender, no hepatosplenomegaly Musculoskeletal: Extremities: extremities normal to inspection Skin: no rashes, warm and dry Neurologic: Nonfocal exam Lymphatic: no cervical lymphadenopathy Results & Data Results & Data ([facility]) Vital Signs (Past 12 Hours) Vital Signs Temp Pulse Pulse Resp BP BP Pulse Ox 09/23/20 11:55 37.4 C 87 16 93/60 L 95 09/23/20 07:34 37.2 C 82 16 86/51 L 94 09/23/20 05:45 77 18 82/56 L 93 09/23/20 05:24 99 H 09/23/20 02:35 37.6 C H 96 H 20 88/50 L 92 09/23/20 01:43 37.1 C 87 16 101/67 98 Pulse Ox 09/23/20 11:55 09/23/20 07:34 09/23/20 05:45 09/23/20 05:24 09/23/20 02:35 92 09/23/20 01:43 Laboratory Results 09/23/20 06:45 09/23/20 06:45 Diagnostic Findings CHEST CTA for PULMONARY ARTERIES CT DOSE: 257.93 mGy.cm HISTORY: fevers, cough, mucus, cp, h/o MAC, BRCA, r/o PE TECHNIQUE: Multiaxial CT images of the chest were performed following the intravenous administration of contrast to evaluate the pulmonary arteries. Maximal intensity projection images were also obtained. A dose lowering technique was utilized adhering to the principles of ALARA. COMPARISON STUDY: Chest 09/22/2020. FINDINGS: Normal caliber thoracic aorta with no evidence for dissection. The h eart is normal in size. No pleural or pericardial effusions. No filling defects within the pulmonary arteries to suggest a pulmonary embolus. No suspicious lytic or blastic osseous lesions. Limited views of the upper abdomen demonstrate a normal liver and spleen. The adrenal glands unremarkable. The heart is normal in size. Normal esophagus. Evidence for a partial left mastectomy. A few mildly enlarged bilateral hilar lymph nodes most pronounced on the right. Dominant right hilar lymph node measures 1.4 cm. These may be reactive. There is dense consolidation within the right lower lobe posteriorly with scattered tree-in-bud nodular opacities seen within the bilateral mid to lower lung zones. No pneumothorax. Postoperative changes consistent with a prior right middle lobectomy. Remaining central airways are patent. Bronchiectasis seen within the lingula consistent with chronic change. Partial opacification of the right lower lobe bronchi. Mild central bronchial wall thickening. IMPRESSION: 1. No evidence for pulmonary embolus. 2. Dense consolidation within the right lower lobe posteriorly with scattered tree-in-bud nodular opacities within the bilateral mid to lower lung zones. This is consistent with a pneumonia. There is also partial opacification the right lower lobe bronchi. 3. Prior right middle lobectomy. 4. Mild bilateral hilar lymphadenopathy, right greater than left. This is likely reactive. Consider six-month chest CT follow-up to ensure resolution. 5. Bronchiectasis within the lingula which is likely chronic. 6. Additional findings as described above. PG Care Time/CCT Total # of Minutes Spent Total Time Spent with Patient: Total time spent is greater than 50% in coordination of care (as documented) at patient's floor/unit and/or counseling patient: Coding Level of Care Code 45647 Inpt Consult Level 5 Diagnoses Pneumonia J18.9 Laterality: bilateral Lung location: lower lobe of lung Pneumonia type: due to unspecified organism Bronchiectasis J47.1 Bronchiectasis type: with acute exacerbation Time Spent (min) 50
[2020-09-23] MEDS ORDERED: VANCOMYCIN HCL 1,250 MG in SODIUM CHLORIDE 0.9% 250 ML IV ONE (15:00)
[2020-09-23] MEDS ORDERED: PIPERACILLIN/TAZOBACTAM 3.375 GM in DEXTROSE 5% 100 ML IV ONE (15:00)
--- NOTE | 2020-09-23 15:55 | Hospitalist Progress Note ---
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 She states that her sputum has turned more pinkish while in hospital. 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 #. Sepsis secondary to pneumonia #. Bronchiectasis status post right middle lobectomy #. 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 #. Hemoptysis secondary to above Admitting complaint is 5 days of fever and cough with greenish sputum associated with malaise. Sputum CS grew Mycobacterium abscessus (08/14/20): Mycobacterium abscessus (drug susceptibility testing not reported at time of report) Per patient, she was instructed to seek medical treatment to start macrolide, amikacin, clofazimine and imipenem after she was diagnosed with M abscesses in [facility] this August. Outpatient chest CT (08/07/20): Progressive bronchiectasis and centrilobular nodules left greater than the right Admitting CXR: Right basilar consolidation suggestive of pneumonia. Postoperative changes suggestive of right middle lobe resection. Admitting CTA chest: No evidence of PE. Dense consolidation within the right lower lobe with scattered tree-in-bud nodular opacities within the middle mid to lower lung zones consistent with pneumonia. Prior right middle lobectomy. Mild bilateral hilar adenopathy R greater than L, likely reactive, consider follow-up in 6 months to ensure resolution. Admitting blood culture 09/22: Pending Pulmonology and ID consulted. Pulm on board: Recommends treatment in the line of CAP, obtain a sputum cultures, transition to vancomycin and Zosyn. Recommends obtaining repeat cultures for NTM [M abscessus], as this is not of acute concern - recommends discontinuing amikacin and other antibiotics for now, but would need follow-up with ID for management of these in long-term, r ecommends follow-up at tertiary center upon discharge. Also recommends possible cystic fibrosis work-up as an outpatient if has not been worked up in the past. Recommends flutter valve and vest therapy as well as hypertonic saline when pulmonary clearance would become an issue. ID recommendation pending Continue with Zosyn and vancomycin, follow-up with blood culture and sputum culture, assess daily for addition of flutter valve and vest therapy with hypertonic saline as per pulmonary commendation, watch her for sepsis progressing to shock, currently eating good, blood pressure low normal, will put on gentle hydration for 1 more day. #. Anemia Presenting hemoglobin 13, down trended to 10.6, MCV 88. Patient coughing up pinkish sputum, await FOBT Iron profile positive for iron deficiency with low transferrin saturation and low iron level Folate and vitamin B12 level fairly normal We will put her on iron therapy Will need an outpatient follow-up on progress of her anemia. #. Breast cancer status post mastectomy Continue with tamoxifen DVT prophylaxis. SCDs Re: Hemoptysis Full code Admission and Anticipated Discharge Date Admission Date: September 22, 2020 Subjective Patient was lying in bed, on room air, NAD, no acute issues overnight. He states he has been feeling feverish with chills and malaise with some chest pain w/ cough. She also states that she has started coughing pinkish sputum after coming to the hospital. Earlier it was more greenish. Denies headache/dizziness/belly pain/acute changes in her bowel or bladder habits/skin rashes or ulcers/numbness tingling anywhere in the body. Physical Exam Physical Exam: GENERAL: Alert and oriented x3. NAD, on RA. HEENT: No pallor, no icterus. Pupils equal, round and reactive to light. Oral mucosa moist. NECK: No JVD, no neck masses. HEART: S1 and S2 heard. Regular rate and rhythm. No murmur, no gallop. RESPIRATORY SYSTEM: Normal AP diameter. No accessory muscle use. No wheezing, no crackles. ABDOMEN: Soft, bowel sounds present, nontender, no distention. CENTRAL NERVOUS SYSTEM: Alert and oriented x3. No facial droop. Speech is clear. Obeys simple commands. Moves extremities. EXTREMITIES: No edema, no erythema seen. Results & Data Results & Data ([facility]) Vital Signs (Past 12 Hours) Vital Signs Temp Pulse Pulse Resp BP Pulse Ox 09/23/20 15:15 37.6 C H 84 16 93/59 L 94 08/14/21 11:55 37.4 C 87 16 93/60 L 95 09/23/20 07:34 37.2 C 82 16 86/51 L 94 09/23/20 05:45 77 18 82/56 L 93 09/23/20 05:24 99 H (1) Pneumonia Laterality: bilateral Lung location: lower lobe of lung Pneumonia type: due to unspecified organism Qualified Code(s): J18.9 - Pneumonia, unspecified organism (2) Bronchiectasis Bronchiectasis type: with acute exacerbation Qualified Code(s): J47.1 - Bronchiectasis with (acute) exacerbation
[2020-09-23] MEDS ORDERED: AMIKACIN SULFATE IV SCH (20:00)
[2020-09-23] MEDS ORDERED: DEXTROSE 5% IV SCH (20:00)
[2020-09-23] MEDS: PIPERACILLIN/TAZOBACTAM 3.375 GM in DEXTROSE 5% 100 ML IV SCH (20:22)
[2020-09-24] MEDS: VANCOMYCIN HCL 1,000 MG in SODIUM CHLORIDE 0.9% 250 ML IV SCH ×3 (00:52→17:46)
[2020-09-24] MEDS ORDERED: LACTATED RINGER'S 1,000 ML IV ONE (01:19)
[2020-09-24] MEDS ORDERED: POLYETHYLENE (MIRALAX) 17 GM PACK PO PRN (01:32)
[2020-09-24 01:56] LABS: Eosinophils # (auto) 0.14 K/uL (0-0.5); Eosinophils % (auto) 1.7 %; Hematocrit (blood only) 32.1 % (37-47); Hemoglobin 10.9 g/dL (12.0-16.0); Immature Granulocytes # (auto) 0.02 K/uL (0.00-0.02); Immature Granulocytes % (auto) 0.2 %; Lymphocytes # (auto) 1.93 K/uL (1.2-3.4); Lymphocytes % (auto) 22.8 %; Mean Corpuscular Volume 88.4 fL (80-100); Mean Platelet Volume 9.9 fL (7.4-10.4); Monocytes # (auto) 0.49 K/uL (0.11-0.59); Monocytes % (auto) 5.8 %; Neutrophils # (auto) 5.88 K/uL (1.4-6.5); Neutrophils % (auto) 69.5 %; Platelet Count 204 K/uL (130-400); RDW Coefficient of Variation 13.3 % (11.5-14.5); RDW Standard Deviation 43.5 fL (36.4-46.3); Red Blood Count 3.63 M/uL (4.2-5.4); White Blood Count 8.46 K/uL (4.8-10.8)
[2020-09-24] MEDS: DOCUSATE SODIUM/SENNA 50/8.6MG TAB PO SCH (02:01)
[2020-09-24 02:15] LABS: Albumin Level 2.5 gm/dl (3.4-5.0); BUN Creatinine Ratio 9.9 (10-20); Calcium 8.4 mg/dl (8.5-10.1); Creatinine Clr Calc Pharmacy 111.6 ml/min; Est GFR (African American) 136.1 ml/min; Est GFR (Non-African American) 117.5 ml/min; Magnesium 1.9 mg/dl (1.8-2.4); Potassium 3.6 mmol/L (3.5-5.1)
[2020-09-24 02:23] LABS: Albumin Globulin Ratio 0.7 (0.9-2); Bilirubin,Total 0.7 mg/dl (0.2-1); Globulin 3.5 gm/dl (2.5-4.0); Phosphorus 2.4 mg/dl (2.5-4.9)
[2020-09-24] MEDS ORDERED: MAGNESIUM SULFATE / D5W 1 GM/100 ML BAG IV ONE (03:00)
[2020-09-24] MEDS: PIPERACILLIN/TAZOBACTAM 3.375 GM in DEXTROSE 5% 100 ML IV SCH ×3 (05:01→20:33)
[2020-09-24] MEDS: TAMOXIFEN CITRATE 10 MG TABLET PO SCH (08:48)
[2020-09-24] MEDS: FERROUS GLUCONATE 324 MG TAB PO SCH (08:49)
--- NOTE | 2020-09-24 09:57 | Pulmonology Progress Note ---
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 Her CT scan shows multifocal infiltrates with some associated bronchiectasis. Recommendations: 1. Pneumonia: Day #2 vancomycin and Zosyn. Unfortunately the patient has been unable to expectorate phlegm. Options at this point time would be to complete empiric antimicrobial coverage and follow-up imaging versus proceed with more invasive analysis including bronchoscopy and BAL. Given her clinical stability I would favor completing a course of antibiotics with follow-up imaging and consultation with ID. If she requires bronchoscopy with BAL, that can be accomplished in the outpatient setting. Could likely transition to oral Levaquin for 10 to 14 days 2. Mycobacterium abscessus: Unclear how much of the current case is related to this nontuberculous mycobacterial infection or not. Await consultation with a dedicated infectious disease expert would be required to manage these antibiotics in the long-term. Treatment for these rapid growers should be conducted in a multidisciplinary approach with the facility that is facile in treating these infections. We do not have infectious disease or thoracic surgery available here so would recommend that she be followed at a tertiary facility such as [facility] or [facility] more local or consider referral to [facility] or [facility] in [place] who have centers of excellence for nontuberculous mycobacterial disease. 3. Bronchiectasis: Unclear what evaluation has been conducted in the past. 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 Would specifically be interested in whether or not she was assessed for cystic fibrosis, alpha-1 antitrypsin deficiency, or primary ciliary dyskinesia. This work-up does not need to take place when the patient is an inpatient and should be deferred until she is in a clinically stable condition. In addition would not want to pursue evaluation if the results are already available. As she is not having issues with pulmonary clearance, there is no indication for hypertonic saline or vest therapy currently. 4. ID consultation has been requested and is currently pending. 5. Hemoptysis: Resolved Above recommendations were discussed with patient at bedside. Await ID recommendations. Patient does not appear toxic and her evaluation may be able to be completed as an outpatient. Admission and Anticipated Discharge Date Admission Date: September 22, 2020 Subjective Patient reports that she feels better. She is not having any fevers. She continues to report night sweats. Her appetite is better. She is coughing but not expectorating any phlegm. She is not had any additional hemoptysis. Review of Systems Review of Systems: All systems reviewed & are unremarkable except as noted in Subjective Physical Exam Constitutional: + thin; no acute distress Neck: trachea midline, no thyromegaly Respiratory: normal respiratory effort, lungs clear to auscultation Cardiovascular: RRR, no murmur, no edema Gastrointestinal (Abdomen): normal bowel sounds, soft, nontender, no hepatosplenomegaly Musculoskeletal: Extremities: extremities normal to inspection Skin: no rashes, warm and dry Lymphatic: no cervical lymphadenopathy Results & Data [facility] Vital Signs (Past 12 Hours) Vital Signs Temp Pulse Pulse Resp BP Pulse Ox Pulse Ox 09/24/20 07:37 68 09/24/20 07:14 37.1 C 64 16 91/54 L 95 09/24/20 03:30 37.3 C 71 20 92/58 L 94 09/24/20 02:35 97 09/24/20 01:16 36.7 C 73 18 93/58 L 99 09/24/20 00:45 78 84/52 L 93 09/23/20 23:29 37.1 C 76 20 91/59 L 96 09/23/20 22:20 69 Laboratory Results 09/24/20 01:46 09/24/20 01:46 PG Care Time/CCT Total # of Minutes Spent Total Time Spent with Patient: Total time spent is greater than 50% in coordination of care (as documented) at patient's floor/unit and/or counseling patient: Coding Level of Care Code 98185 Subseq Hosp Care Lvl 2 Diagnoses Pneumonia J18.9 Laterality: bilateral Lung location: lower lobe of lung Pneumonia type: due to unspecified organism Bronchiectasis J47.1 Bronchiectasis type: with acute exacerbation
[2020-09-24] MEDS: MAGNESIUM OXIDE 400 MG TAB PO SCH (10:11)
[2020-09-24] MEDS: POT PHOSPHATE MONOBASIC W/ SOD TAB PO SCH ×4 (10:11→21:22)
--- NOTE | 2020-09-24 15:56 | Hospitalist Progress Note ---
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 She states that her sputum has turned more pinkish while in hospital. 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 #. Sepsis secondary to pneumonia #. Bronchiectasis status post right middle lobectomy #. 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 #. Hemoptysis secondary to above Admitting complaint is 5 days of fever and cough with greenish sputum associated with malaise. Sputum CS grew Mycobacterium abscessus (08/14/20): Mycobacterium abscessus (drug susceptibility testing not reported at time of report) Per patient, she was instructed to seek medical treatment to start macrolide, amikacin, clofazimine and imipenem after she was diagnosed with M abscesses in [facility] this August. Outpatient chest CT (08/07/20): Progressive bronchiectasis and centrilobular nodules left greater than the right Admitting CXR: Right basilar consolidation suggestive of pneumonia. Postoperative changes suggestive of right middle lobe resection. Admitting CTA chest: No evidence of PE. Dense consolidation within the right lower lobe with scattered tree-in-bud nodular opacities within the middle mid to lower lung zones consistent with pneumonia. Prior right middle lobectomy. Mild bilateral hilar adenopathy R greater than L, likely reactive, consider follow-up in 6 months to ensure resolution. Admitting blood culture 09/22: Pending Pulmonology and ID consulted. Pulm on board: Recommends treatment in the line of CAP, empiric antibiotic treatment as she has been unable to expectorate sputum. Recommends transition to Levaquin for 10 to 14 days. Recommends obtaining repeat cultures for NTM [M abscessus], as this is not of acute concern - recommends discontinuing amikacin and other antibiotics for now, but would need follow-up with ID for management of these in long-term, r ecommends follow-up at tertiary center upon discharge. Also recommends possible cystic fibrosis work-up as an outpatient if has not been worked up in the past. Recommends flutter valve and vest therapy as well as hypertonic saline when pulmonary clearance would become an issue. ID recommendation pending Continue with Zosyn, will discontinue vancomycin as 09/23 MRSA screen was negative, follow-up with blood culture and sputum culture #. Anemia Presenting hemoglobin 13, down trended to 10.6, MCV 88. Fairly stable at around 10. Patient coughing up pinkish sputum at presentation, stopped today Iron profile positive for iron deficiency with low transferrin saturation and low iron level Folate and vitamin B12 level fairly normal We will put her on iron therapy Will need an outpatient follow-up on progress of her anemia. #. Breast cancer status post mastectomy Continue with tamoxifen DVT prophylaxis. SCDs Re: Hemoptysis Full code Admission and Anticipated Discharge Date Admission Date: September 22, 2020 Subjective Patient was lying in bed, NAD, on room air, has not had any acute issues overnight. Denies any fever, chest pain, or sputum at the bedside was free of blood tinge and looks clear, she has not had any additional hemoptysis. She states that she feels better today. Denies other review of symptoms. Physical Exam Physical Exam: GENERAL: Alert and oriented x3. NAD, on RA. HEENT: No pallor, no icterus. Pupils equal, round and reactive to light. Oral mucosa moist. NECK: No JVD, no neck masses. HEART: S1 and S2 heard. Regular rate and rhythm. No murmur, no gallop. RESPIRATORY SYSTEM: Normal AP diameter. No accessory muscle use. No wheezing, no crackles. ABDOMEN: Soft, bowel sounds present, nontender, no distention. CENTRAL NERVOUS SYSTEM: Alert and oriented x3. No facial droop. Speech is clear. Obeys simple commands. Moves extremities. EXTREMITIES: No edema, no erythema seen. Results & Data Results & Data ([facility]) Vital Signs (Past 12 Hours) Vital Signs Temp Pulse Pulse Resp BP Pulse Ox Pulse Ox 09/24/20 15:19 36.8 C 64 16 89/50 L 97 09/24/20 10:54 92 09/24/20 07:37 68 09/24/20 07:14 37.1 C 64 16 91/54 L 95 (1) Pneumonia Laterality: bilateral Lung location: lower lobe of lung Pneumonia type: due to unspecified organism Qualified Code(s): J18.9 - Pneumonia, unspecified organism (2) Bronchiectasis Bronchiectasis type: with acute exacerbation Qualified Code(s): J47.1 - Bronchiectasis with (acute) exacerbation
[2020-09-24] MEDS ORDERED: ALBUT/IPRATROP 3MG/0.5MG NEB 3 ML VIAL NEB STA (19:51)
[2020-09-24] MEDS ORDERED: ACETAMINOPHEN W/CODEINE #3 1 TAB PO ONE (19:52)
[2020-09-25] MEDS: VANCOMYCIN HCL 1,000 MG in SODIUM CHLORIDE 0.9% 250 ML IV SCH ×2 (00:27→09:51)
[2020-09-25] MEDS: PIPERACILLIN/TAZOBACTAM 3.375 GM in DEXTROSE 5% 100 ML IV SCH ×3 (04:32→20:12)
[2020-09-25] MEDS ORDERED: VANCOMYCIN TROUGH ONE (07:30)
[2020-09-25 07:50] LABS: Hematocrit (blood only) 31.7 % (37-47); Hemoglobin 10.8 g/dL (12.0-16.0)
[2020-09-25] MEDS: LEVALBUTEROL 1.25MG/0.5ML NEB INH PRN ×2 (08:03→21:20)
[2020-09-25] MEDS: IPRATROPIUM BROMIDE NEB SOLN 0.02% 2.5 ML VIAL INH PRN ×2 (08:03→21:20)
[2020-09-25 08:22] LABS: Creatinine Clr Calc Pharmacy 118.8 ml/min; Est GFR (African American) 139.5 ml/min; Est GFR (Non-African American) 120.4 ml/min; Magnesium 2.1 mg/dl (1.8-2.4)
[2020-09-25 08:25] LABS: Phosphorus 3.5 mg/dl (2.5-4.9)
--- NOTE | 2020-09-25 08:45 | Pharmacy Report ---
Pharmacy Abx Dose Short Note - Date of Service September 25, 2020 - Assessment & Plan Assessment 40 year old F receiving vancomycin/zosyn for possible pneumonia Day # 4 of total antimicrobial therapy. Plan Vancomycin * Trough level this AM came back therapeutic at ~17 mcg/ml (goal 15-20 mcg/ml) * Plan to continue with current vancomycin regimen 1 gm iv q 8 hr * Renal function remains stable * Awaiting culture sputum culture results. ID consulted, recommendations pending Pharmacy will continue to follow and will adjust dose/frequency as necessary. Thank you.
[2020-09-25] MEDS: POT PHOSPHATE MONOBASIC W/ SOD TAB PO SCH ×4 (08:58→20:14)
[2020-09-25] MEDS: FERROUS GLUCONATE 324 MG TAB PO SCH (09:00)
[2020-09-25] MEDS: TAMOXIFEN CITRATE 10 MG TABLET PO SCH (09:01)
[2020-09-25] MEDS: MAGNESIUM OXIDE 400 MG TAB PO SCH (09:02)
[2020-09-25] MEDS: DOCUSATE SODIUM/SENNA 50/8.6MG TAB PO SCH (09:02)
--- NOTE | 2020-09-25 13:52 | Hospitalist Progress Note ---
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 She states that her sputum has turned more pinkish while in hospital. 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 #. Sepsis secondary to pneumonia #. Bronchiectasis status post right middle lobectomy #. 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 #. Hemoptysis secondary to above Admitting complaint is 5 days of fever and cough with greenish sputum associated with malaise. Sputum CS grew Mycobacterium abscessus (08/14/20): Mycobacterium abscessus (drug susceptibility testing not reported at time of report) Per patient, she was instructed to seek medical treatment to start macrolide, amikacin, clofazimine and imipenem after she was diagnosed with M abscesses in [facility] this August. Outpatient chest CT (08/07/20): Progressive bronchiectasis and centrilobular nodules left greater than the right Admitting CXR: Right basilar consolidation suggestive of pneumonia. Postoperative changes suggestive of right middle lobe resection. Admitting CTA chest: No evidence of PE. Dense consolidation within the right lower lobe with scattered tree-in-bud nodular opacities within the middle mid to lower lung zones consistent with pneumonia. Prior right middle lobectomy. Mild bilateral hilar adenopathy R greater than L, likely reactive, consider follow-up in 6 months to ensure resolution. Admitting blood culture 09/22: Pending Pulmonology and ID consulted. Pulm on board: Recommends treatment in the line of CAP, empiric antibiotic treatment as she has been unable to expectorate sputum. Recommends transition to Levaquin for 10 to 14 days. Recommends obtaining repeat cultures for NTM [M abscessus], as this is not of acute concern - recommends discontinuing amikacin and other antibiotics for now, but would need follow-up with ID for management of these in long-term, Recommends follow-up at tertiary center upon discharge. Also recommends possible cystic fibrosis work-up as an outpatient if has not been worked up in the past. Recommends flutter valve and vest therapy as well as hypertonic saline when pulmonary clearance would become an issue. ID recommendation pending Continue with Zosyn, will discontinue vancomycin as 09/23 MRSA screen was negative, follow-up with blood culture and sputum culture #. Anemia Presenting hemoglobin 13, down trended to 10.6, MCV 88. Fairly stable at around 10. Patient coughing up pinkish sputum at presentation, stopped today Iron profile positive for iron deficiency with low transferrin saturation and low iron level Folate and vitamin B12 level fairly normal We will put her on iron therapy Will need an outpatient follow-up on progress of her anemia. #. Breast cancer status post mastectomy Continue with tamoxifen Await ID eval DVT prophylaxis. SCDs Re: Hemoptysis Full code ROS-No Headache, No Visual Changes, No Nausea, No Vomiting, No Fever, No Chills, No Neck Pain or Stiffness, No Chest Pain, No Palpitations, No SOB, No LUI, No Cough, No Sputum, No Wheezing, No Abdominal Pain, No Diarrhea, No Hematemesis, No Hemoptysis, No Unexpected Weight Loss, No Flank pain, No Melena, No Hematochezia, No Frequency, No Urgency, No Burning, No Hematuria, No Rashes, No Diaphoresis. Appetite is Normal Physical Exam Gen-AAO x 3, NAD, Afebrile Head-NCAT, EOMI, PERRLA, Anicteric Sclera, No Posterior Pharyngeal Erythema Neck-Supple, No JVD, No Thyromegaly, No Masses, No LAD, No Bruits Lungs-Right Rales, No Rhonchi, No Wheezing, No Crepitus Chest-No S4, +S1, +S2, No S3, No Murmurs, No Rubs, No Gallops, No Ectopy Abdomen-Soft, Bowel Sounds Present, Non Tender, Non Distended, No Hepatomegaly, No Splenomegaly, No Palpable Masses, No Rebound, No Rigidity, No Guarding Musculoskeletal-Full Range of Motion Bilaterally, No CVAT Extremities-No Cyanosis, No Clubbing, No Edema Nuero-Cranial Nerves II-XII grossly intact, Motor WNL, DTRs WNL, Strength WNL, Non Focal Psych-Normal Mood Admission and Anticipated Discharge Date Admission Date: September 22, 2020 Results & Data Results & Data ([facility]) Vital Signs (Past 12 Hours) Vital Signs Temp Pulse Resp BP Pulse Ox 09/25/20 11:32 36.9 C 71 16 92/60 L 95 09/25/20 08:04 62 18 95 09/25/20 07:27 37.0 C 64 16 91/57 L 93 09/25/20 03:07 37 C 70 18 90/54 L 94 (1) Pneumonia Laterality: bilateral Lung location: lower lobe of lung Pneumonia type: due to unspecified organism Qualified Code(s): J18.9 - Pneumonia, unspecified organism (2) Bronchiectasis Bronchiectasis type: with acute exacerbation Qualified Code(s): J47.1 - Bronchiectasis with (acute) exacerbation
--- NOTE | 2020-09-25 14:13 | Pulmonology Progress Note ---
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 Her CT scan shows multifocal infiltrates with some associated bro nchiectasis. Recommendations: 1. Pneumonia: Continue with Zosyn. Vancomycin has been discontinued as her MRSA screen was negative. We will obtain a chest x-ray tomorrow. If no improvement in chest x-ray, will proceed with bronchoscopy and BAL tomorrow. ID consult pending. 2. Mycobacterium abscessus: Infectious disease consult is pending. AFB sputum cultures ordered. Again, if no improvement in chest x-ray tomorrow, will proceed with bronchoscopy. 3. Bronchiectasis: Unclear what evaluation has been conducted in the past. 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 Would specifically be interested in whether or not she was assessed for cystic fibrosis, alpha-1 antitrypsin deficiency, or primary ciliary dyskinesia. This work-up does not need to take place when the patient is an inpatient and should be deferred until she is in a clinically stable condition. In addition would not want to pursue evaluation if the results are already available. Flutter valve has been ordered to promote airway clearance. 4. Hemoptysis: Resolved Thank you for the consult. We will continue to follow along with you. Admission and Anticipated Discharge Date Admission Date: September 22, 2020 Subjective Patient seen and examined this morning. She relates that her hemoptysis has resolved. She still has sputum production that is white. She does have chest pain from coughing so much. She denies any fevers or chills. She feels that her symptoms have changed since hospital admission, but not necessarily improved. Review of Systems Review of Systems: All systems reviewed & are unremarkable except as noted in HPI & below Physical Exam Constitutional: + thin; no acute distress Neck: trachea midline, no thyromegaly Respiratory: normal respiratory effort, lungs clear to auscultation Cardiovascular: RRR, no murmur, no edema Gastrointestinal (Abdomen): normal bowel sounds, soft, nontender, no hepatosplenomegaly Musculoskeletal: Extremities: extremities normal to inspection Skin: no rashes, warm and dry Lymphatic: no cervical lymphadenopathy Results & Data Results & Data ([facility]) Vital Signs (Past 12 Hours) Vital Signs Temp Pulse Resp BP Pulse Ox 09/25/20 11:32 98.4 F 71 16 92/60 L 95 09/25/20 08:04 62 18 95 09/25/20 07:27 98.6 F 64 16 91/57 L 93 09/25/20 03:07 98.6 F 70 18 90/54 L 94 Vital signs, labs and imaging personally reviewed PG Care Time/CCT Total # of Minutes Spent Total Time Spent with Patient: Total time spent is greater than 50% in coordination of care (as documented) at patient's floor/unit and/or counseling patient: Coding Level of Care Code 40259 Subseq Hosp Care Lvl 3 Diagnoses Pneumonia J18.9 Laterality: bilateral Lung location: lower lobe of lung Pneumonia type: due to unspecified organism Bronchiectasis J47.1 Bronchiectasis type: with acute exacerbation Cough productive of purulent sputum R05
[2020-09-26] MEDS: PIPERACILLIN/TAZOBACTAM 3.375 GM in DEXTROSE 5% 100 ML IV SCH (04:04)
[2020-09-26 06:41] LABS: Hematocrit (blood only) 32.7 % (37-47); Hemoglobin 11.3 g/dL (12.0-16.0); Mean Corpuscular Hemoglobin 30.2 pg (25-34); Mean Corpuscular Hgb Conc 34.6 g/dL (32-36); Mean Corpuscular Volume 87.4 fL (80-100); Mean Platelet Volume 9.1 fL (7.4-10.4); Platelet Count 276 K/uL (130-400); RDW Coefficient of Variation 12.9 % (11.5-14.5); RDW Standard Deviation 42.1 fL (36.4-46.3); Red Blood Count 3.74 M/uL (4.2-5.4); White Blood Count 4.84 K/uL (4.8-10.8)
[2020-09-26 07:23] LABS: BUN Creatinine Ratio 16.9 (10-20); Calcium 8.7 mg/dl (8.5-10.1); Creatinine Clr Calc Pharmacy 90.2 ml/min; Est GFR (African American) 128.3 ml/min; Est GFR (Non-African American) 110.7 ml/min; Potassium 3.7 mmol/L (3.5-5.1)
--- NOTE | 2020-09-26 08:04 | XRay Report ---
XR chest 1V portable HISTORY: follow up pneumonia COMPARISON: Chest 09/22/2020. FINDINGS: No pneumothorax. No pleural effusions. Stable volume loss within the right hemithorax with postoperative changes consistent with a prior right middle lobectomy. Patchy airspace opacities withi n the right lower lobe persist. There is also bibasilar reticulonodular interstitial thickening, unch anged. Bibasilar consistent with a pneumonia. The heart is normal in size. IMPRESSION: No change in the bibasilar airspace opacities, right greater than left. This is consistent with a pne umonia. ACT 112: Negative or not required by law. Electronically signed by: John Waller M.D. 09/26/2020 8:03 AM
[2020-09-26] MEDS: TAMOXIFEN CITRATE 10 MG TABLET PO SCH (08:19)
[2020-09-26] MEDS: DOCUSATE SODIUM/SENNA 50/8.6MG TAB PO SCH (08:19)
[2020-09-26] MEDS: FERROUS GLUCONATE 324 MG TAB PO SCH (08:20)
--- NOTE | 2020-09-26 10:26 | Discharge Summary ---
Date of Service September 26, 2020 Admission HPI Per Admitting Provider Patient is a 40-year-old female with PMH left breast cancer s/p left mastectomy, on tamoxifen, bronchiectasis s/p right lobectomy, H/O MAC infection presented to ER with complaint of cough and fever x5 days. 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 She reports was in [place] for 2 months. Patient states was asymptomatic at time. 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 Patient states was feeling fine until 5 days ago when had onset of fever up to 39.5C, productive cough with green, blood-tinged sputum, and body aches. She was taking Tylenol for fever. Patient denies chest pain. She denies history of COVID-19 infection. Reports had [employer] COVID-19 vaccine in March and April 2020. Denies any known ill contacts. Denies, N/V/D/C, KRAMER, dizziness, syncope, vision changes, neck pain, CP, SOB, orthopnea, palpitations, cough, sore throat, choking, otalgia, abdominal pain, paresthesias, weakness, extremity weakness, extremity edema, rashes, urinary symptoms. Denies h/o DVT/PE. Admission Exam Per Admitting Provider General: no distress, WDWN Head: normocephalic, atraumatic Eyes: PERRL, EOM's intact, conjunctiva non-injected, anicteric ENT: normal inspection external ears, nose, mucous membranes mildly dry Neck: supple, trachea midline, non-tender Lungs: no respiratory distress, able to speak in sentences, +diminished breath sounds mid to lower right lung, +rhonchi bases CV: RRR, no murmur, no pretibial edema Abd: normal BS, soft, non-tender Ext: no cyanosis, no erythema, no calf tenderness Neuro: A&O x 3, no focal deficits noted, normal affect Skin: warm, dry Principal Diagnosis Pneumonia sec to Klebsiella Discharge Exam see below Discharge Data Allergies Allergy/AdvReac Type Severity Reaction Status Date / Time No Known Allergies Allergy Verified 09/22/20 15:59 Consultations 09/22/20 19:29 ED Decision to Admit Stat 09/23/20 01:59 Consult Infectious Diseases Routine 09/23/20 02:35 Consult Pulmonology Routine Procedures Performed Operation Date: 09/26/20 10:00 <No data on this case meets the specified criteria> Ordered Studies 09/22/20 14:24 CT angio chest PE protocol Stat Current Diagnoses Sepsis, unspecified organism (09/22/20) Malignant neoplasm of unspecified site of unspecified female breast (09/22/20) Other disorders of phosphorus metabolism (09/22/20) Pneumonia, unspecified organism (09/22/20) Bronchiectasis with (acute) exacerbation (09/22/20) Bronchiectasis, uncomplicated (09/22/20) Hemoptysis (09/22/20) Cough (09/22/20) Personal history of other infectious and parasitic diseases (09/22/20) Allergies No Known Allergies Allergy (Verified 09/22/20 15:59) Height/Weight/Isolation Height 5 ft 3 in Weight 50.7 kg Chemistry 09/25/20 09/26/20 07:30 06:20 Sodium 138 Potassium 3.7 Chloride 109 H Carbon Dioxide 24 Anion Gap 5.0 BUN 11 Creatinine 0.52 L 0.67 Glucose 95 Microbiology 09/25/20 15:06 Sputum, Expectorated Gram Stain - Final 09/25/20 15:06 Sputum, Expectorated Sputum Culture - Pending 09/24/20 13:20 Sputum, Expectorated Gram Stain - Final 09/24/20 13:20 Sputum, Expectorated Sputum Culture - Preliminary Klebsiella pneumoniae 09/25/20 15:06 Sputum, Expectorated Acid Fast Bacilli Smear - Pending 09/25/20 15:06 Sputum, Expectorated Acid Fast Bacilli Culture - Pending 09/22/20 15:47 Blood Aerobic Blood Culture - Preliminary No growth in Aerobic bottle after 48 hours. 09/22/20 15:47 Blood Anaerobic Blood Culture - Preliminary No growth in Anaerobic bottle after 48 hours. 09/22/20 15:42 Blood Aerobic Blood Culture - Preliminary No growth in Aerobic bottle after 48 hours. 09/22/20 15:42 Blood Anaerobic Blood Culture - Preliminary No growth in Anaerobic bottle after 48 hours. 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 She states that her sputum has turned more pinkish while in hospital. 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 #. Sepsis secondary to pneumonia-Culture positive for pansensitive Klebsiella #. Bronchiectasis status post right middle lobectomy #. 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 f/u OP c Pulm #. Hemoptysis secondary to above Admitting complaint is 5 days of fever and cough with greenish sputum associated with malaise. Sputum CS grew Mycobacterium abscessus (08/14/20): Mycobacterium abscessus (drug susceptibility testing not reported at time of report) Per patient, she was instructed to seek medical treatment to start macrolide, amikacin, clofazimine and imipenem after she was diagnosed with M abscesses in [facility] [place] this August. Outpatient chest CT (08/07/20): Progressive bronchiectasis and centrilobular nodules left greater than the right Will DC on Cefdinir for 7 more days, f/u c Pulm for Mycobacterium, No BAL needed, XR improving Admitting CXR: Right basilar consolidation suggestive of pneumonia. Postoperative changes suggestive of right middle lobe resection. Admitting CTA chest: No evidence of PE. Dense consolidation within the right lower lobe with scattered tree-in-bud nodular opacities within the middle mid to lower lung zones consistent with pneumonia. Prior right middle lobectomy. Mild bilateral hilar adenopathy R greater than L, likely reactive, consider follow-up in 6 months to ensure resolution. Admitting blood culture 09/22: Pending Pulmonology and ID consulted. Pulm on board: Recommends treatment in the line of CAP, empiric antibiotic treatment as she has been unable to expectorate sputum. Recommends obtaining repeat cultures for NTM [M abscessus], as this is not of acute concern - recommends discontinuing amikacin and other antibiotics for now, but would need follow-up with ID for management of these in long-term, Recommends follow-up at tertiary center upon discharge. Also recommends possible cystic fibrosis work-up as an outpatient if has not been worked up in the past. Recommends flutter valve and vest therapy as well as hypertonic saline when pulmonary clearance would become an issue. ID recommendation still pending Cx grew out Pansensitive Klebsiella, DC on Omnicef today #. Anemia Presenting hemoglobin 13, down trended to 10.6, MCV 88. Fairly stable at around 10. Patient coughing up pinkish sputum at presentation, stopped today Iron profile positive for iron deficiency with low transferrin saturation and low iron level Folate and vitamin B12 level fairly normal We will put her on iron therapy Will need an outpatient follow-up on progress of her anemia. #. Breast cancer status post mastectomy Continue with tamoxifen DVT prophylaxis. SCDs Re: Hemoptysis Full code ROS-No Headache, No Visual Changes, No Nausea, No Vomiting, No Fever, No Chills, No Neck Pain or Stiffness, No Chest Pain, No Palpitations, No SOB, No LUI, No Cough, No Sputum, No Wheezing, No Abdominal Pain, No Diarrhea, No Hematemesis, No Hemoptysis, No Unexpected Weight Loss, No Flank pain, No Melena, No Hematochezia, No Frequency, No Urgency, No Burning, No Hematuria, No Rashes, No Diaphoresis. Appetite is Normal Physical Exam Gen-AAO x 3, NAD, Afebrile Head-NCAT, EOMI, PERRLA, Anicteric Sclera, No Posterior Pharyngeal Erythema Neck-Supple, No JVD, No Thyromegaly, No Masses, No LAD, No Bruits Lungs-Right Rales, No Rhonchi, No Wheezing, No Crepitus Chest-No S4, +S1, +S2, No S3, No Murmurs, No Rubs, No Gallops, No Ectopy Abdomen-Soft, Bowel Sounds Present, Non Tender, Non Distended, No Hepatomegaly, No Splenomegaly, No Palpable Masses, No Rebound, No Rigidity, No Guarding Musculoskeletal-Full Range of Motion Bilaterally, No CVAT Extremities-No Cyanosis, No Clubbing, No Edema Nuero-Cranial Nerves II-XII grossly intact, Motor WNL, DTRs WNL, Strength WNL, Non Focal Psych-Normal Mood Total Time Total Time Spent Total Time Spent (In Minutes): 45 mins Discharge Plan Discharge Items Patient Disposition: Home - Self-Care Reason For Visit: SEPSIS Discharge Diagnosis: Pneumonia sec to Klebsiella Bronchiectasis Anemia Breast CA Condition on Discharge: Good Health Concerns: Follow up with PCP for Pneumonia resolution and Fe Def Anemia Activity: Resume your previous activity Lifting: Gradually increase as tolerated Bathing: No limitations Sexual Activity: When tolerated Driving/Machine Use: No limitations Weightbearing: Full weightbearing Non-emergency contact: Primary Care Provider, Specialist and Pre Planning Advisor Call non-emergency contact if: you have any medication questions and your symptoms worsen Follow-up/Referrals: Hiro Dhaliwal MD [Physician] - (2-3 weeks) Sajan Marino II, DO [Physician] - (Routine follow up for Klebsiella Pneumonia and Mycobacterium, Call for first opening with first available Dr) PCP,NO [Primary Care Provider] - Diet: Regular Addtl Attending Provider Instructions: Call Pulmonary and Infectious Disease for first Opening Pending Studies at Discharge: No Stand-Alone Forms: My [employer], Smoking Cessation, Work/School Release Medications and DC Order Prescriptions: New acetaminophen 325 mg Tablet 650 mg PO Q4H PRN (Reason: fever or pain) Qty: 100 RF: 0 benzonatate [Tessalon Perles] 100 mg Capsule 100 mg PO TID PRN (Reason: cough) Qty: 12 RF: 0 ferrous gluconate 324 mg (38 mg iron) Tablet 324 mg PO QAM Qty: 30 RF: 0 cefdinir 300 mg capsule 300 mg PO Q12H 10 Days Qty: 20 RF: 0 albuterol sulfate 90 mcg/actuation HFA aerosol inhaler 2 inh inhalation Q4H PRN (Reason: shortness of breath or wheezing) Qty: 8.5 RF: 0 Continued tamoxifen 20 mg tablet 20 mg PO DAILY RF: 0 ascorbic acid (vitamin C) [Vitamin C] 1,000 mg Tablet 1 g PO DAILY RF: 0 cholecalciferol (vitamin D3) [Vitamin D3] 125 mcg (5,000 unit) Tablet 125 mcg PO DAILY RF: 0 Discharge Orders: Discharge Order (Routine); Ordered 09/26/20 Ordered By: Edgard Askew Admission Data Admit Date/Time: 09/22/20 21:03 Attending Provider: Edgard Askew Admit Provider: Romie Marie Primary Care Provider: PCP,NO Other Providers: Romie Marie ; Austyn Carroll ; Newton Damico ; John Meier I. ; Sajan Marino II ; Domenica Camp ; Karthikeyan Phelps ; Eliud Boyd ; Mathew Mccarthy ; Hiro Dhaliwal ; Fredy Barker ; Jai Mariano
[2020-09-26] MEDS ORDERED: cefTRIAXone SODIUM 1,000 MG in DEXTROSE 5% 50 ML IV SCH (12:00)
== END 2020-09-26 11:18 | disposition home or self-care (01) | DRG 871 ==
LOC: ED 13:37 → 2N 21:03 → SUATTDRO 21:03 → 2N 09-23 01:43

== ENCOUNTER 2021-06-05 18:00 | Observation (INO) ==
[2021-06-05 20:34] LABS: Eosinophils # (auto) 0.49 K/uL (0-0.5); Eosinophils % (auto) 8.3 %; Hematocrit (blood only) 35.5 % (37-47); Hemoglobin 11.7 g/dL (12.0-16.0); Immature Granulocytes # (auto) 0.01 K/uL (0.00-0.02); Immature Granulocytes % (auto) 0.2 %; Lymphocytes # (auto) 2.25 K/uL (1.2-3.4); Lymphocytes % (auto) 38.3 %; Mean Corpuscular Hemoglobin 30.7 pg (25-34); Mean Corpuscular Volume 93.2 fL (80-100); Mean Platelet Volume 10.1 fL (7.4-10.4); Monocytes # (auto) 0.29 K/uL (0.11-0.59); Monocytes % (auto) 4.9 %; Neutrophils # (auto) 2.83 K/uL (1.4-6.5); Neutrophils % (auto) 48.3 %; Platelet Count 231 K/uL (130-400); RDW Coefficient of Variation 16.1 % (11.5-14.5); Red Blood Count 3.81 M/uL (4.2-5.4); White Blood Count 5.87 K/uL (4.8-10.8)
--- NOTE | 2021-06-05 20:46 | XRay Report ---
XR chest 1V portable CLINICAL HISTORY: Atypical chest pain TECHNIQUE: Single frontal radiograph of the chest was obtained. Comparison: Comparison is made to chest 2 views 10/26/2020 FINDINGS: A right PICC catheter terminates in the mid SVC. The cardiomediastinal silhouette is normal. The lung s are clear. No evidence of pleural effusion or pneumothorax. IMPRESSION: No acute chest disease. Satisfactory placement of the right PICC catheter. ACT 112: Negative or not required by law. Electronically signed by: Bib Garcia M.D. 06/05/2021 8:45 PM
[2021-06-05 20:50] LABS: Partial Thromboplastin Ratio 1.1; Partial Thromboplastin Time 29.6 Seconds (21.0-31.0); Prothrombin Time 10.5 Seconds (9.0-12.0)
[2021-06-05 20:51] LABS: iSTAT Creatinine 0.9 mg/dl (0.6-1.3); iSTAT Hemoglobin 11.9 g/dl (12.0-16.0); iSTAT Ionized Calcium 1.25 mmol/l (1.12-1.32); iSTAT Potassium 4.1 mmol/L (3.3-5.0)
[2021-06-05 21:03] LABS: BUN Creatinine Ratio 20.9 (10-20); Calcium 9.1 mg/dl (8.5-10.1); Creatinine Clr Calc Pharmacy 59.5 ml/min; Est GFR (African American) 91.5 ml/min; Est GFR (Non-African American) 78.9 ml/min; Potassium 4.1 mmol/L (3.5-5.1)
[2021-06-05 21:04] LABS: Troponin I High Sensitivity 2.8 pg/ml (0-14)
[2021-06-05] MEDS ORDERED: OPTIRAY 320 125ml IV ONE (21:20)
--- NOTE | 2021-06-05 21:43 | CT Scan Report ---
CT angio chest PE protocol CLINICAL HISTORY: Chest Pain, eval for PE TECHNIQUE: Multidetector row helical CT of the chest was performed with angiographic protocol. Stewart l and sagittal reformations were obtained. Coronal and sagittal MIPS were obtained from the axial chantel a set and were submitted for review. Automated dose lowering techniques and/or adjustment according to patient size were utilized for this exam. CT DOSE: 238.98 mGy.cm Comparison: Comparison is made to CT chest 09/22/2020 FINDINGS: Lungs and pleura: Tree-in-bud nodularity is noted primarily in the lower lungs. Heart and pericardium: Heart size is normal. No pericardial effusion. Vessels: No evidence of pulmonary embolism. Mediastinum and conor: A right hilar node measures 10 mm. Additional smaller mediastinal and hilar lym ph nodes are seen. Chest wall and lower neck: Subcentimeter axillary lymph nodes noted. Abdomen: Unremarkable. Bones: Degenerative changes in the thoracic spine. IMPRESSION: 1. No evidence of pulmonary embolism. 2. Tree in bud nodularity in the lower lungs compatible with infectious/inflammatory etiology. Promi nent lymph nodes are likely reactive. ACT 112: Negative or not required by law. Electronically signed by: Bib Garcia M.D. 06/05/2021 9:41 PM
[2021-06-05 22:01] LABS: Adenovirus PCR Not Detected (NotDetected); Bordetella parapertussis PCR Not Detected (NotDetected); Bordetella pertussis PCR Not Detected (NotDetected); Chlamydia pneumoniae PCR Not Detected (NotDetected); Coronavirus 229E PCR Not Detected (NotDetected); Coronavirus CoV-2 (COVID19)PCR Not Detected (NotDetected); Coronavirus HKU1 PCR Not Detected (NotDetected); Coronavirus NL63 PCR Not Detected (NotDetected); Coronavirus OC43PCR Not Detected (NotDetected); Human Metapneumovirus PCR Not Detected (NotDetected); Influenza A PCR Not Detected (NotDetected); Influenza B PCR Not Detected (NotDetected); Mycoplasma pneumoniae PCR Not Detected (NotDetected); Parainfluenza Virus 1 PCR Not Detected (NotDetected); Parainfluenza Virus 2 PCR Not Detected (NotDetected); Parainfluenza Virus 3 PCR Not Detected (NotDetected); Parainfluenza Virus 4 PCR Not Detected (NotDetected); Respiratory Syncytial VirusPCR Not Detected (NotDetected); Rhinovirus/Enterovirus PCR Not Detected (NotDetected)
[2021-06-05] MEDS ORDERED: SODIUM CHLORIDE 0.9% 1000ML 1,000 ML IV ONE ×2 (22:34→22:38)
[2021-06-05] MEDS ORDERED: LORATADINE 10 MG TAB PO ONE (23:01)
--- NOTE | 2021-06-05 23:07 | History & Physical Report ---
Date of Service June 05, 2021 Assessment & Plan (1) Drug hypersensitivity: Plan: Imipenem hypersensitivity hx bronchiectasis status post surgery Mycobacterium abscessus ongoing antibiotic Rx RUE swelling secondary to PICC line rash rule out DVT Breast cancer status post surgery on tamoxifen Hypokalemia Hyperglycemia rule out DM Chronic anemia, hemoglobin at baseline Malnutrition (low BMI) OBS Add Imipenem to allergy/ADR list. Loratadine 1 dose now Benadryl as needed allergic reaction C ID consult in a.m. Re: NTM pneumonia, imipenem hypersensitivity (Patient known to Dr. Marino.) [facility] consult for follow-up evaluation as per patient request Re: NTM pneumonia Replace potassium Check hemoglobin A1c Nutrition consult Re: Low BMI DVT prophylaxis. Heparin subcu Full code Text document was generated using [email or web address] voice recognition software. It may contain grammatical or spelling errors. Kindly contact undersigned for clarification of any documentation item in question. History of Present Illness Chief Complaint: Shortness of breath, rash Primary Care Provider: Sheila Robin MD History obtained from patient and records. 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 Last confinement September 2020 for Klebsiella pneumonia. [place] [facility] [place] amikacin via PICC line, Bactrim, and linezolid for NTM pneumonia. 2 weeks ago, ID specialist recommended stopping linezolid due to bone marrow suppression. Imipenem initiated last week. Patient felt weird after first dose of imipenem last week. Small rashes noted on right upper extremity PICC line site. Recurrent symptoms noted with every administration of antibiotic. 2 days ago, patient PICC line site noted to be oozing and bubbling around the bandage. This afternoon, patient experience chest pain and shortness of breath after administration of IV imipenem. Patient directed to ER for evaluation by outpatient providers. 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 Allergy/AdvReac Type Severity Reaction Status Date / Time imipenem Allergy Severe chest Verified 06/05/21 22:41 pain/shortness of breath Home Medications Medication Instructions Recorded Confirmed Type tamoxifen 20 mg tablet 20 mg PO QAM 04/28/20 06/05/21 History ascorbic acid (vitamin C) 1,000 mg 1 g PO DAILY 09/22/20 06/05/21 History tablet (Vitamin C) cholecalciferol (vitamin D3) 125 125 mcg PO DAILY 09/22/20 06/05/21 History mcg (5,000 unit) tablet (Vitamin D3) acetaminophen 325 mg tablet 650 mg PO Q4H PRN #100 tab 09/26/20 06/05/21 Rx albuterol sulfate 90 mcg/actuation 2 inh INHALATION Q4H PRN #8.5 g 09/26/20 06/05/21 Rx aerosol inhaler Flutter Valve #1 ea 10/27/20 06/05/21 Rx Vibration Vest #1 ea 10/27/20 06/05/21 Rx nebulizers #1 ea 12/29/20 06/05/21 Rx sodium chloride 7 % for 4 ml INHALATION BID #240 ml 12/29/20 06/05/21 Rx nebulization ipratropium 0.5 mg-albuterol 3 mg 3 ml INHALATION BID #180 ml 01/19/21 06/05/21 Rx (2.5 mg base)/3 mL nebulization soln amikacin 1,250 mg IV [id number] 06/05/21 06/05/21 History sulfamethoxazole 800 1 tab PO BID 06/05/21 06/05/21 History mg-trimethoprim 160 mg tablet Past Med/Surg History Medical History Bronchiectasis Bronchiectasis Cough productive of purulent sputum Cough with hemoptysis Encounter for immunization 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 Pneumonia Surgical History History of left mastectomy History of lobectomy of lung Family History Father Colorectal cancer Aunt Uterine cancer paternal Grandfather (Maternal) Cancer Stomach Cancer Denies family history of Ovarian cancer Breast cancer Social History Smoking Status: Never smoker Hx Alcohol Use: No Hx Substance Use: No Preferred Language: Wolof Communication Ability: Effective Wheel Polisher Required: No Beliefs That Will Affect Care: None Current Living Situation: Alone Other Information That Helps Us Care for You: No Feels Safe at Home: Yes Safety Concerns: Feels Safe At This Time Assistive Devices: None Review of Systems Review of Systems: As per HPI, all other systems reviewed and negative Physical Exam Physical Exam: GENERAL: Comfortable, slightly anxious, no respiratory distress SKIN: Pallor, warm HEENT: Pale palpebral conjunctivae, no ptosis, dry buccal mucosa NECK : Supple, no tenderness CHEST : Decreased breath sounds, no tenderness HEART : RRR, no obvious murmurs ABDOMEN: No distention, nontender EXTREMITIES : PICC line over RUE, note of maculopapular rash over tender RUE swelling, no LE swelling/tenderness NEUROLOGIC : Coherent, no facial asymmetry, no other gross focality Results & Data Results & Data ([facility]) Vital Signs (Past 12 Hours) Vital Signs Temp Pulse Pulse Resp BP BP BP 06/05/21 22:00 65 18 103/65 103/65 06/05/21 21:02 67 18 100/69 06/05/21 20:45 06/05/21 20:14 67 18 06/05/21 18:02 36.5 C 82 18 108/66 Pulse Ox 06/05/21 22:00 93 06/05/21 21:02 97 06/05/21 20:45 95 06/05/21 20:14 94 06/05/21 18:02 97 Laboratory Results 06/05/21 06/05/21 06/05/21 18:14 18:14 18:14 WBC 5.87 RBC 3.81 L Hgb 11.7 L POC Hgb Hct 35.5 L POC Hct MCV 93.2 MCH 30.7 MCHC 33.0 RDW Std Deviation 54.0 H RDW Coeff of Caroline 16.1 H Plt Count 231 MPV 10.1 Immature Gran % (Auto) 0.2 Neut % (Auto) 48.3 Lymph % (Auto) 38.3 Ellis % (Auto) 4.9 Eos % (Auto) 8.3 Baso % (Auto) 0.0 Neut # (Auto) 2.83 Lymph # (Auto) 2.25 Ellis # (Auto) 0.29 Eos # (Auto) 0.49 Baso # (Auto) 0.00 Immature Gran # (Auto) 0.01 PT 10.5 INR 1.0 APTT 29.6 PTT Ratio 1.1 POC Sodium Sodium 133 L POC Potassium Potassium 4.1 POC Chloride Chloride 101 Carbon Dioxide 25 POC Total CO2 Anion Gap 7 POC Anion Gap POC BUN BUN 19 Creatinine 0.91 POC Creatinine Est Cr Clr Drug Dosing 59.5 Est GFR ( Amer) 91.5 Est GFR (Non-Af Amer) 78.9 BUN/Creatinine Ratio 20.9 H Glucose 134 H POC Glucose (other) Lactate Calcium 9.1 POC Ioniz Calcium Zay Troponin I High Sens 2.8 Lipase 14 Adenovirus (PCR) B. pertussis DNA (PCR) B.parapertussis DNA PCR C. pneumoniae DNA (PCR) Coronavirus OC43 (PCR) Coronavirus HKU1 (PCR) Coronavirus 229E (PCR) SARS-CoV-2 (PCR) Coronavirus NL63 (PCR) Human Metapneumovir PCR Influenza Type A (PCR) Influenza Type B (PCR) M. pneumoniae (PCR) Parainfluenza 1 (PCR) Parainfluenza 2 (PCR) Parainfluenza 3 (PCR) Parainfluenza 4 (PCR) RSV (PCR) Entero/Rhino (PCR) 06/05/21 06/05/21 06/05/21 20:34 20:38 20:48 WBC RBC Hgb POC Hgb 11.9 L Hct POC Hct 35 L MCV MCH MCHC RDW Std Deviation RDW Coeff of Caroline Plt Count MPV Immature Gran % (Auto) Neut % (Auto) Lymph % (Auto) Ellis % (Auto) Eos % (Auto) Baso % (Auto) Neut # (Auto) Lymph # (Auto) Ellis # (Auto) Eos # (Auto) Baso # (Auto) Immature Gran # (Auto) PT INR APTT PTT Ratio POC Sodium 136 Sodium POC Potassium 4.1 Potassium POC Chloride 101 Chloride Carbon Dioxide POC Total CO2 30 Anion Gap POC Anion Gap 11.0 L POC BUN 18 BUN Creatinine POC Creatinine 0.9 Est Cr Clr Drug Dosing Est GFR ( Amer) Est GFR (Non-Af Amer) BUN/Creatinine Ratio Glucose POC Glucose (other) 120 H Lactate 0.9 Calcium POC Ioniz Calcium Zay 1.25 Troponin I High Sens Lipase Adenovirus (PCR) Not Detected B. pertussis DNA (PCR) Not Detected B.parapertussis DNA PCR Not Detected C. pneumoniae DNA (PCR) Not Detected Coronavirus OC43 (PCR) Not Detected Coronavirus HKU1 (PCR) Not Detected Coronavirus 229E (PCR) Not Detected SARS-CoV-2 (PCR) Not Detected Coronavirus NL63 (PCR) Not Detected Human Metapneumovir PCR Not Detected Influenza Type A (PCR) Not Detected Influenza Type B (PCR) Not Detected M. pneumoniae (PCR) Not Detected Parainfluenza 1 (PCR) Not Detected Parainfluenza 2 (PCR) Not Detected Parainfluenza 3 (PCR) Not Detected Parainfluenza 4 (PCR) Not Detected RSV (PCR) Not Detected Entero/Rhino (PCR) Not Detected Diagnostic Findings CT chest: 1. No evidence of pulmonary embolism. 2. Tree in bud nodularity in the lower lungs compatible with infectious/inflammatory etiology. Prominent lymph nodes are likely reactive. EKG as per my interpretation:Rate 70, NSR, normal axis, T wave abnormalities anteroseptal leads
[2021-06-05 23:14] LABS: Magnesium 1.8 mg/dl (1.7-2.4)
[2021-06-05 23:18] LABS: Troponin I High Sensitivity < 2.3 pg/ml (0-14)
--- NOTE | 2021-06-05 23:20 | Emergency Department Note ---
History of Present Illness General Chief complaint: Chest Pain Stated complaint: CHEST PAIN AND SOB AFTER ANTIBIOTICS Time Seen by Provider: 06/05/21 20:12 History of Present Illness Provider complaint: Chest pain shortness of breath rash Onset (ago): week(s) (1.5) Location: chest, upper extremity and right Radiation: non-radiation Associated symptoms: + chest pain, + rash and + shortness of breath; no cough, no fever/chills, no headaches or no nausea/vomiting 41-year-old female presents emergency department for chest pain shortness of breath and rash. Patient reports her symptoms began 1-1/2 weeks ago after she was started on imipenem by [facility] infectious disease for an ongoing lung infection. She reports her home health care nurse was concerned she was having allergic reaction so referred her to emergency department. She reports blisters over the right upper extremity when PICC line. She reports no rash anywhere else. No difficulty swallowing. No nausea or vomiting. No hemoptysis. Home Medications Medication Instructions Recorded Confirmed Type tamoxifen 20 mg tablet 20 mg PO QAM 04/28/20 06/05/21 History ascorbic acid (vitamin C) 1,000 mg 1 g PO DAILY 09/22/20 06/05/21 History tablet (Vitamin C) cholecalciferol (vitamin D3) 125 125 mcg PO DAILY 09/22/20 06/05/21 History mcg (5,000 unit) tablet (Vitamin D3) acetaminophen 325 mg tablet 650 mg PO Q4H PRN #100 tab 09/26/20 06/05/21 Rx albuterol sulfate 90 mcg/actuation 2 inh INHALATION Q4H PRN #8.5 g 09/26/20 Rx aerosol inhaler Flutter Valve #1 ea 10/27/20 06/05/21 Rx Vibration Vest #1 ea 10/27/20 06/05/21 Rx nebulizers #1 ea 12/29/20 06/05/21 Rx sodium chloride 7 % for 4 ml INHALATION BID #240 ml 12/29/20 06/05/21 Rx nebulization ipratropium 0.5 mg-albuterol 3 mg 3 ml INHALATION BID #180 ml 01/19/21 06/05/21 Rx (2.5 mg base)/3 mL nebulization soln amikacin 1,250 mg IV [id number] 06/05/21 06/05/21 History sulfamethoxazole 800 1 tab PO BID 06/05/21 06/05/21 History mg-trimethoprim 160 mg tablet Allergies Allergy/AdvReac Type Severity Reaction Status Date / Time imipenem Allergy Severe chest Verified 06/05/21 22:41 pain/shortness of breath Past Med/Surg History Medical History Bronchiectasis Bronchiectasis Cough productive of purulent sputum Cough with hemoptysis Encounter for immunization 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 Pneumonia Surgical History History of left mastectomy History of lobectomy of lung Family History Father Colorectal cancer Aunt Uterine cancer paternal Grandfather (Maternal) Cancer Stomach Cancer Denies family history of Ovarian cancer Breast cancer Social History Smoking Status: Never smoker Hx Alcohol Use: No Hx Substance Use: No Current Living Situation: Alone Feels Safe at Home: Yes Assistive Devices: None Review of Systems A total of 10 systems reviewed and were otherwise negative Physical Exam Vital Signs Vital Signs - 24 hr 06/05/21 18:02 06/05/21 20:14 06/05/21 20:45 Temperature 36.5 C Temperature Source Temporal Artery Scan Pulse Rate 82 Pulse Rate [Apical] 67 Respiratory Rate 18 18 Respiratory Effort / Characteristics Non-Labored Non-Labored Spontaneous Respiratory Depth Normal Normal Respiratory Pattern Regular Blood Pressure 108/66 Blood Pressure [Left Arm] Blood Pressure [Right Arm] Blood Pressure Mean 80 Blood Pressure Mean [Left Arm] Blood Pressure Mean [Right Arm] Blood Pressure Position Sitting Blood Pressure Position [Right Arm] Pulse Oximetry 97 94 95 Oxygen Delivery Method Room Air Room Air Room Air Sepsis Recent Fever Within 48 Hours No Sepsis New/Unexplained Change in Mental Status No Sepsis Action Taken by Nursing No Action Required 06/05/21 21:02 06/05/21 22:00 Temperature Temperature Source Pulse Rate 67 Pulse Rate [Apical] 65 Respiratory Rate 18 18 Respiratory Effort / Characteristics Non-Labored Spontaneous Respiratory Depth Normal Respiratory Pattern Regular Blood Pressure 100/69 Blood Pressure [Left Arm] 103/65 Blood Pressure [Right Arm] 103/65 Blood Pressure Mean 79 Blood Pressure Mean [Left Arm] 77 Blood Pressure Mean [Right Arm] 77 Blood Pressure Position Blood Pressure Position [Right Arm] Sitting Pulse Oximetry 97 93 Oxygen Delivery Method Room Air Room Air Sepsis Recent Fever Within 48 Hours Sepsis New/Unexplained Change in Mental Status Sepsis Action Taken by Nursing Physical Exam GENERAL: She is oriented to person, place, and time. She appears well-developed and well-nourished. She does not appear distressed. HENT: Exam performed. -Head: Normocephalic and atraumatic. -Right Ear: External ear normal. No mastoid tenderness. -Left Ear: External ear normal. No mastoid tenderness. -Mouth/Throat: The oropharynx is clear and moist. No trismus in the jaw. No dental abscesses or uvula swelling. No oropharyngeal exudate or tonsillar abscesses. EYES: Conjunctivae and EOM are normal. Pupils are equal, round, and reactive to light. Right eye exhibits no discharge. Left eye exhibits no discharge. No scleral icterus. NECK: Normal range of motion. Neck supple. No JVD present. No spinous process tenderness present. No carotid bruit present. No rigidity. No tracheal deviation and normal range of motion present. No Brudzinski's sign and no Kernig's sign noted. CV: Normal rate, regular rhythm, normal heart sounds and intact distal pulses. There is no peripheral edema. Palpable radial pulses bue. PULM/CHEST: Effort normal and breath sounds normal. No respiratory distress. No stridor. She has no wheezes. She has no rales. -Chest Wall: She exhibits no tenderness. ABD: The abdomen is soft. Bowel sounds are normal. She has no distension. No mass is present. There is no tenderness. There is no rebound, no guarding, no Shipley's sign and no tenderness at McBurney's point. Rovsig negative MUSC/SKEL: Normal range of motion. There is no peripheral edema, tenderness or deformity. LYMPH: No cervical adenopathy. NEURO: She is alert and oriented to person, place, and time. She has normal strength. No cranial nerve deficit or sensory deficit. Coordination and gait normal. GCS eye subscore is 4. GCS verbal subscore is 5. GCS motor subscore is 6. Cerebellar tests wnl. SKIN: Erythematous urticaria over the right upper extremity PICC line. PSYCH: She has a normal mood and affect. Behavior is normal. Judgment and thought content normal. Course Course 2011: The patient was evaluated in room B12. A complete history and physical exam was performed Cardiac monitoring: An order was placed for continuous cardiac monitoring. The monitor shows a rate of 70 with sinus rhythm EMR reviewed. Patient has a history of bronchiectasis and was treated in [place] for this where she had a lobectomy done and then developed MAC. Year later she developed another Mycobacterium infection. Patient was recently admitted to [facility] for pulmonary infection. She saw Dr. 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 As of then she had had no follow-up with infectious disease at [facility]. Patient confirms she has been unable to see [facility] in the clinic for infectious disease. 2205: Vital signs stable. Labs within normal limits. Imaging shows no pneumonia but does show possible opacities in the tree bed concerning for infectious/inflammatory process. I discussed the case with [facility] on-call infectious disease Dr. Farooq and explained to her the difficulty she has been having seeing [facility] infectious disease in the outpatient setting. Dr. Farooq states it would be strange for an allergic reaction to only be on her arm and not more diffuse. Dr. Farooq and I came up with the plan that we would hold the patient's imipenem and admit her to the hospital to be evaluated by pulmonology as well as [facility] infectious disease via telemedicine. Patient is agreement with this plan. [facility] hospitalist will be contacted. Administered Medications Discontinued Medications Sodium Chloride (Nss 1000ml) 1,000 mls @ 999 mls/hr IV .Q1H1M ONE Stop: 06/05/21 23:38 Last Admin: 06/05/21 22:40 Dose: 999 mls/hr Documented by: [id number] Ioversol (Optiray 320 125ml) 120 ml IV ONCE ONE Stop: 06/05/21 21:21 Last Admin: 06/05/21 21:22 Dose: 120 ml Documented by: [id number] Medical Decision Making Laboratory Data Result diagrams: 06/05/21 18:14 06/05/21 18:14 Lab Results 06/05/21 06/05/21 06/05/21 Range/Units 18:14 18:14 18:14 WBC 5.87 (4.8-10.8) K/uL RBC 3.81 L (4.2-5.4) M/uL Hgb 11.7 L (12.0-16.0) g/dL POC Hgb (12.0-16.0) g/dl Hct 35.5 L (37-47) % POC Hct (37-47) % MCV 93.2 (80-100) fL MCH 30.7 (25-34) pg MCHC 33.0 (32-36) g/dL RDW Std Deviation 54.0 H (36.4-46.3) fL RDW Coeff of Caroline 16.1 H (11.5-14.5) % Plt Count 231 (130-400) K/uL MPV 10.1 (7.4-10.4) fL Immature Gran % (Auto) 0.2 % Neut % (Auto) 48.3 % Lymph % (Auto) 38.3 % Taliaferro % (Auto) 4.9 % Eos % (Auto) 8.3 % Baso % (Auto) 0.0 % Neut # (Auto) 2.83 (1.4-6.5) K/uL Lymph # (Auto) 2.25 (1.2-3.4) K/uL Taliaferro # (Auto) 0.29 (0.11-0.59) K/uL Eos # (Auto) 0.49 (0-0.5) K/uL Baso # (Auto) 0.00 (0-0.2) K/uL Immature Gran # (Auto) 0.01 (0.00-0.02) K/uL PT 10.5 (9.0-12.0) Seconds INR 1.0 (0.9-1.1) APTT 29.6 (21.0-31.0) Seconds PTT Ratio 1.1 POC Sodium (135-144) mmol/L Sodium 133 L (136-145) mmol/L POC Potassium (3.3-5.0) mmol/L Potassium 4.1 (3.5-5.1) mmol/L POC Chloride (101-112) mmol/L Chloride 101 (98-107) mmol/L Carbon Dioxide 25 (21-32) mmol/L POC Total CO2 (24-31) mmol/L Anion Gap 7 (3-11) POC Anion Gap (16-25) mmol/L POC BUN (7-18) mg/dl BUN 19 (6-23) mg/dl Creatinine 0.91 (0.6-1.2) mg/dl POC Creatinine (0.6-1.3) mg/dl Est Cr Clr Drug Dosing 59.5 ml/min Est GFR ( Amer) 91.5 ml/min Est GFR (Non-Af Amer) 78.9 ml/min BUN/Creatinine Ratio 20.9 H (10-20) Glucose 134 H (70-99(Fasting)) mg/dl POC Glucose (other) (70-99) mg/dl Lactate (0.4-2.0) mmol/L Calcium 9.1 (8.5-10.1) mg/dl POC Ioniz Calcium Zay (1.12-1.32) mmol/l Magnesium (1.7-2.4) mg/dl Troponin I High Sens 2.8 (0-14) pg/ml Lipase 14 (11-82) U/L Adenovirus (PCR) (NotDetected) B. pertussis DNA (PCR) (NotDetected) B.parapertussis DNA PCR (NotDetected) C. pneumoniae DNA (PCR) (NotDetected) Coronavirus OC43 (PCR) (NotDetected) Coronavirus HKU1 (PCR) (NotDetected) Coronavirus 229E (PCR) (NotDetected) SARS-CoV-2 (PCR) (NotDetected) Coronavirus NL63 (PCR) (NotDetected) Human Metapneumovir PCR (NotDetected) Influenza Type A (PCR) (NotDetected) Influenza Type B (PCR) (NotDetected) M. pneumoniae (PCR) (NotDetected) Parainfluenza 1 (PCR) (NotDetected) Parainfluenza 2 (PCR) (NotDetected) Parainfluenza 3 (PCR) (NotDetected) Parainfluenza 4 (PCR) (NotDetected) RSV (PCR) (NotDetected) Entero/Rhino (PCR) (NotDetected) 06/05/21 06/05/21 06/05/21 Range/Units 20:34 20:38 20:48 WBC (4.8-10.8) K/uL RBC (4.2-5.4) M/uL Hgb (12.0-16.0) g/dL POC Hgb 11.9 L (12.0-16.0) g/dl Hct (37-47) % POC Hct 35 L (37-47) % MCV (80-100) fL MCH (25-34) pg MCHC (32-36) g/dL RDW Std Deviation (36.4-46.3) fL RDW Coeff of Caroline (11.5-14.5) % Plt Count (130-400) K/uL MPV (7.4-10.4) fL Immature Gran % (Auto) % Neut % (Auto) % Lymph % (Auto) % Taliaferro % (Auto) % Eos % (Auto) % Baso % (Auto) % Neut # (Auto) (1.4-6.5) K/uL Lymph # (Auto) (1.2-3.4) K/uL Taliaferro # (Auto) (0.11-0.59) K/uL Eos # (Auto) (0-0.5) K/uL Baso # (Auto) (0-0.2) K/uL Immature Gran # (Auto) (0.00-0.02) K/uL PT (9.0-12.0) Seconds INR (0.9-1.1) APTT (21.0-31.0) Seconds PTT Ratio POC Sodium 136 (135-144) mmol/L Sodium (136-145) mmol/L POC Potassium 4.1 (3.3-5.0) mmol/L Potassium (3.5-5.1) mmol/L POC Chloride 101 (101-112) mmol/L Chloride (98-107) mmol/L Carbon Dioxide (21-32) mmol/L POC Total CO2 30 (24-31) mmol/L Anion Gap (3-11) POC Anion Gap 11.0 L (16-25) mmol/L POC BUN 18 (7-18) mg/dl BUN (6-23) mg/dl Creatinine (0.6-1.2) mg/dl POC Creatinine 0.9 (0.6-1.3) mg/dl Est Cr Clr Drug Dosing ml/min Est GFR ( Amer) ml/min Est GFR (Non-Af Amer) ml/min BUN/Creatinine Ratio (10-20) Glucose (70-99(Fasting)) mg/dl POC Glucose (other) 120 H (70-99) mg/dl Lactate 0.9 (0.4-2.0) mmol/L Calcium (8.5-10.1) mg/dl POC Ioniz Calcium Zay 1.25 (1.12-1.32) mmol/l Magnesium (1.7-2.4) mg/dl Troponin I High Sens (0-14) pg/ml Lipase (11-82) U/L Adenovirus (PCR) Not Detected (NotDetected) B. pertussis DNA (PCR) Not Detected (NotDetected) B.parapertussis DNA PCR Not Detected (NotDetected) C. pneumoniae DNA (PCR) Not Detected (NotDetected) Coronavirus OC43 (PCR) Not Detected (NotDetected) Coronavirus HKU1 (PCR) Not Detected (NotDetected) Coronavirus 229E (PCR) Not Detected (NotDetected) SARS-CoV-2 (PCR) Not Detected (NotDetected) Coronavirus NL63 (PCR) Not Detected (NotDetected) Human Metapneumovir PCR Not Detected (NotDetected) Influenza Type A (PCR) Not Detected (NotDetected) Influenza Type B (PCR) Not Detected (NotDetected) M. pneumoniae (PCR) Not Detected (NotDetected) Parainfluenza 1 (PCR) Not Detected (NotDetected) Parainfluenza 2 (PCR) Not Detected (NotDetected) Parainfluenza 3 (PCR) Not Detected (NotDetected) Parainfluenza 4 (PCR) Not Detected (NotDetected) RSV (PCR) Not Detected (NotDetected) Entero/Rhino (PCR) Not Detected (NotDetected) 06/05/21 Range/Units 22:40 WBC (4.8-10.8) K/uL RBC (4.2-5.4) M/uL Hgb (12.0-16.0) g/dL POC Hgb (12.0-16.0) g/dl Hct (37-47) % POC Hct (37-47) % MCV (80-100) fL MCH (25-34) pg MCHC (32-36) g/dL RDW Std Deviation (36.4-46.3) fL RDW Coeff of Caroline (11.5-14.5) % Plt Count (130-400) K/uL MPV (7.4-10.4) fL Immature Gran % (Auto) % Neut % (Auto) % Lymph % (Auto) % Taliaferro % (Auto) % Eos % (Auto) % Baso % (Auto) % Neut # (Auto) (1.4-6.5) K/uL Lymph # (Auto) (1.2-3.4) K/uL Taliaferro # (Auto) (0.11-0.59) K/uL Eos # (Auto) (0-0.5) K/uL Baso # (Auto) (0-0.2) K/uL Immature Gran # (Auto) (0.00-0.02) K/uL PT (9.0-12.0) Seconds INR (0.9-1.1) APTT (21.0-31.0) Seconds PTT Ratio POC Sodium (135-144) mmol/L Sodium (136-145) mmol/L POC Potassium (3.3-5.0) mmol/L Potassium (3.5-5.1) mmol/L POC Chloride (101-112) mmol/L Chloride (98-107) mmol/L Carbon Dioxide (21-32) mmol/L POC Total CO2 (24-31) mmol/L Anion Gap (3-11) POC Anion Gap (16-25) mmol/L POC BUN (7-18) mg/dl BUN (6-23) mg/dl Creatinine (0.6-1.2) mg/dl POC Creatinine (0.6-1.3) mg/dl Est Cr Clr Drug Dosing ml/min Est GFR ( Amer) ml/min Est GFR (Non-Af Amer) ml/min BUN/Creatinine Ratio (10-20) Glucose (70-99(Fasting)) mg/dl POC Glucose (other) (70-99) mg/dl Lactate (0.4-2.0) mmol/L Calcium (8.5-10.1) mg/dl POC Ioniz Calcium Zay (1.12-1.32) mmol/l Magnesium 1.8 (1.7-2.4) mg/dl Troponin I High Sens (0-14) pg/ml Lipase (11-82) U/L Adenovirus (PCR) (NotDetected) B. pertussis DNA (PCR) (NotDetected) B.parapertussis DNA PCR (NotDetected) C. pneumoniae DNA (PCR) (NotDetected) Coronavirus OC43 (PCR) (NotDetected) Coronavirus HKU1 (PCR) (NotDetected) Coronavirus 229E (PCR) (NotDetected) SARS-CoV-2 (PCR) (NotDetected) Coronavirus NL63 (PCR) (NotDetected) Human Metapneumovir PCR (NotDetected) Influenza Type A (PCR) (NotDetected) Influenza Type B (PCR) (NotDetected) M. pneumoniae (PCR) (NotDetected) Parainfluenza 1 (PCR) (NotDetected) Parainfluenza 2 (PCR) (NotDetected) Parainfluenza 3 (PCR) (NotDetected) Parainfluenza 4 (PCR) (NotDetected) RSV (PCR) (NotDetected) Entero/Rhino (PCR) (NotDetected) Imaging Data Radiologist's Impression: Chest X-Ray 06/05/21 20:14 XR chest 1V portable CLINICAL HISTORY: Atypical chest pain TECHNIQUE: Single frontal radiograph of the chest was obtained. Comparison: Comparison is made to chest 2 views 10/26/2020 FINDINGS: A right PICC catheter terminates in the mid SVC. The cardiomediastinal silhouette is normal. The lungs are clear. No evidence of pleural effusion or pneumothorax. IMPRESSION: No acute chest disease. Satisfactory placement of the right PICC catheter. ACT 112: Negative or not required by law. Electronically signed by: Bib Garcia M.D. 06/05/2021 8:45 PM Chest CTA 06/05/21 20:15 CT angio chest PE protocol CLINICAL HISTORY: Chest Pain, eval for PE TECHNIQUE: Multidetector row helical CT of the chest was performed with angiographic protocol. Coronal and sagittal reformations were obtained. Coronal and sagittal MIPS were obtained from the axial data set and were submitted for review. Automated dose lowering techniques and/or adjustment according to patient size were utilized for this exam. CT DOSE: 238.98 mGy.cm Comparison: Comparison is made to CT chest 09/22/2020 FINDINGS: Lungs and pleura: Tree-in-bud nodularity is noted primarily in the lower lungs. Heart and pericardium: Heart size is normal. No pericardial effusion. Vessels: No evidence of pulmonary embolism. Mediastinum and conor: A right hilar node measures 10 mm. Additional smaller mediastinal and hilar lymph nodes are seen. Chest wall and lower neck: Subcentimeter axillary lymph nodes noted. Abdomen: Unremarkable. Bones: Degenerative changes in the thoracic spine. IMPRESSION: 1. No evidence of pulmonary embolism. 2. Tree in bud nodularity in the lower lungs compatible with infectious/infla mmatory etiology. Prominent lymph nodes are likely reactive. ACT 112: Negative or not required by law. Electronically signed by: Bib Garcia M.D. 06/05/2021 9:41 PM ECG Data Indication: + chest pain Rate (beats per minute): 71 Rhythm: + normal sinus ECG Intervals/blocks: + Normal QRS, + Normal CO and + Normal QT-c ECG ST segments: + Normal ST segments MDM Narrative 2012: The patient was evaluated in room B12. A complete history and physical exam was performed Cardiac monitoring: An order was placed for continuous cardiac monitoring. The monitor shows a rate of 70 with sinus rhythm EMR reviewed. Patient has a history of bronchiectasis and was treated in [place] for this where she had a lobectomy done and then developed MAC. Year later she developed another Mycobacterium infection. Patient was recently admitted to [facility] for pulmonary infection. She saw Dr. 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 As of then she had had no follow-up with infectious disease at [facility]. Patient confirms she has been unable to see [facility] in the clinic for infectious disease. 220: Vital signs stable. Labs within normal limits. Imaging shows no pneumonia but does show possible opacities in the tree bed concerning for infectious/inflammatory process. I discussed the case with [facility] on-call infectious disease Dr. Farooq and explained to her the difficulty she has been having seeing [facility] infectious disease in the outpatient setting. Dr. Farooq states it would be strange for an allergic reaction to only be on her arm and not more diffuse. Dr. Farooq and I came up with the plan that we would hold the patient's imipenem and admit her to the hospital to be evaluated by pulmonology as well as [facility] infectious disease via telemedicine. Patient is agreement with this plan. [facility] hospitalist will be contacted. Impression & Plan Chest pain, Bronchiectasis, Allergic reaction Discharge Plan Visit Data Chief Complaint: Chest Pain Stated Complaint: CHEST PAIN AND SOB AFTER ANTIBIOTICS Discharge Problem: Chest pain, Bronchiectasis, Allergic reaction Patient Disposition: Being Evaluated by Hospitalist Forms Stand Alone Forms: My [facility] Prescriptions Prescriptions: No Action ipratropium-albuterol 0.5 mg-3 mg(2.5 mg base)/3 mL solution for nebulization 3 ml inhalation BID Qty: 180 RF: 0 tamoxifen 20 mg tablet 20 mg PO QAM RF: 0 (DME) Flutter Valve Device See Rx Instructions .Route Qty: 1 RF: 0 (DME) Vibration Vest Misc See Rx Instructions .Route Qty: 1 RF: 0 (DME) nebulizers Misc See Rx Instructions .Route Qty: 1 RF: 0 sodium chloride 7 % solution for nebulization 4 ml inhalation BID Qty: 240 RF: 0 ascorbic acid (vitamin C) [Vitamin C] 1,000 mg Tablet 1 g PO DAILY RF: 0 cholecalciferol (vitamin D3) [Vitamin D3] 125 mcg (5,000 unit) Tablet 125 mcg PO DAILY RF: 0 acetaminophen 325 mg Tablet 650 mg PO Q4H PRN (Reason: fever or pain) Qty: 100 RF: 0 albuterol sulfate 90 mcg/actuation HFA aerosol inhaler 2 inh inhalation Q4H PRN (Reason: shortness of breath or wheezing) Qty: 8.5 RF: 0 sulfamethoxazole-trimethoprim 800-160 mg Tablet 1 tab PO BID RF: 0 amikacin 1,250 mg IV [id number] RF: 0 Referrals Referrals: Sheila Robin MD [Primary Care Provider] -
[2021-06-06] MEDS ORDERED: PROMETHAZINE HCL 6.25 MG in SODIUM CHLORIDE 0.9% 50 ML IV PRN (01:11)
[2021-06-06] MEDS ORDERED: diphenhydrAMINE 50 MG/ML VIAL IV PRN (01:11)
[2021-06-06] MEDS ORDERED: ACETAMINOPHEN 325 MG TAB PO PRN (01:11)
[2021-06-06] MEDS ORDERED: ALBUT/IPRATROP 3MG/0.5MG NEB 3 ML VIAL NEB PRN (01:11)
[2021-06-06 02:08] LABS: Pregnancy Test, Urine Negative (Negative)
[2021-06-06] MEDS: HEPARIN SOD 5,000 UNIT/0.5 ML VIAL SQ SCH ×3 (05:09→21:27)
[2021-06-06 06:48] LABS: BUN Creatinine Ratio 19.7 (10-20); Calcium 8.2 mg/dl (8.5-10.1); Creatinine Clr Calc Pharmacy 85.6 ml/min; Est GFR (African American) 123.5 ml/min; Est GFR (Non-African American) 106.5 ml/min; Potassium 3.7 mmol/L (3.5-5.1)
[2021-06-06] MEDS: SODIUM CHLOR 7% 4 ML NEB INH SCH ×2 (07:29→19:28)
[2021-06-06 08:06] LABS: Estimated Average Glucose 111 mg/dl; Hemoglobin A1C 5.5 % (4.5-5.6)
[2021-06-06] MEDS: SULFAMETHOXAZOLE/TRIMETHOPRIM DS 800/160MG TAB PO SCH ×2 (08:06→22:14)
[2021-06-06] MEDS: TAMOXIFEN CITRATE 10 MG TABLET PO SCH (08:06)
--- NOTE | 2021-06-06 08:12 | Ultrasound Report ---
US venous doppler UE RT CLINICAL HISTORY: RUE swelling at PICC insertion Procedure: side upper extremity real-time compression venous ultrasound with Duplex and Color Doppler imaging. Utilizing real-time ultrasonic imaging multiple real time high-resolution ultrasonic images of the de ep venous system were performed from the forearm through the subclavian vein including evaluation of the jugular vein. Compression real time ultrasonic imaging was performed in addition to color Dopple r imaging and duplex Doppler ultrasound with velocity spectral profile analysis. There is a very small basilic vein with the PICC catheter seen. Little or no flow is seen around the PICC line and the vessel was not fully compressing around the PICC line from its proximal to mid aspe ct. No definite thrombus can be identified. The study is limited by bandaging, the PICC line and the IVC. There is otherwise normal compressibility of the deep venous system from the forearm through the subc lavian vein. Normal vascular flow is currently identified. No evidence of acute thrombosis is identif ied. Impression: 1. Limited study as described above. There is a very small basilic vein with the PICC line in place. Little to no flow is seen around the PICC line and the vessel was not fully compressing around the PI CC line. However, no definite thrombus is identified. 2. No other evidence of deep venous thrombus. ACT 112: Negative or not required by law. Electronically signed by: Eliot Corley M.D. 06/06/2021 8:10 AM
[2021-06-06 09:11] LABS: Hematocrit (blood only) 32.6 % (37-47); Hemoglobin 10.8 g/dL (12.0-16.0); Mean Corpuscular Hemoglobin 30.3 pg (25-34); Mean Corpuscular Hgb Conc 33.1 g/dL (32-36); Mean Corpuscular Volume 91.3 fL (80-100); Mean Platelet Volume 10.1 fL (7.4-10.4); Platelet Count 198 K/uL (130-400); RDW Coefficient of Variation 16.4 % (11.5-14.5); RDW Standard Deviation 54.7 fL (36.4-46.3); Red Blood Count 3.57 M/uL (4.2-5.4); White Blood Count 4.99 K/uL (4.8-10.8)
[2021-06-06 10:10] LABS: Basophils # (auto) 0.02 K/uL (0-0.2); Basophils % (auto) 0.4 %; Eosinophils # (auto) 0.42 K/uL (0-0.5); Eosinophils % (auto) 8.4 %; Lymphocytes # (auto) 2.53 K/uL (1.2-3.4); Lymphocytes % (auto) 50.7 %; Neutrophils # (auto) 1.72 K/uL (1.4-6.5); Neutrophils % (auto) 34.5 %
--- NOTE | 2021-06-06 10:13 | Electrocardiogram Report ---
Test Reason : Blood Pressure : / mmHG Vent. Rate : 071 BPM Atrial Rate : 071 BPM P-R Int : 116 ms QRS Dur : 100 ms QT Int : 416 ms P-R-T Axes : 063 073 058 degrees QTc Int : 452 ms Normal sinus rhythm T wave abnormality, consider anterior ischemia Abnormal ECG When compared with ECG of 22-SEP-2020 15:22, T wave inversion no longer evident in Inferior leads T wave inversion no longer evident in Lateral leads Confirmed by Tarik Kaur ([id number]) on 06/06/2021 10:12:56 AM Referred By: REFERRED SELF Confirmed By:Tarik Kaur
--- NOTE | 2021-06-06 10:25 | Pulmonary Consultation ---
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 She presented to the emergency room due to concern about a potential allergic reaction. This appears to be more consistent with a contact dermatitis related to the adhesive of the dressing however I will defer to the ID experts. Consideration for allergy immunology consultation may be appropriate as there may not be great alternatives for the patient's antimicrobial regiment. Review of her CT scan demonstrates that there does appear to be improvement in the nodularity compared to her prior CT scan from about 6 months ago. Recommendations: 1. Rash: Again suspect this is a contact dermatitis but will defer to the patient's primary admitting service and infectious disease experts. The PICC line did not demonstrate compressibility but no obvious evidence of thrombus. Consideration for removal and alternative IV may be appropriate. 2. M abscessus infection: I will defer antimicrobial agents to infectious disease. 3. Bronchiectasis: Continue pulmonary toilet regiment with hypertonic saline, flutter valve, and vest therapy. Patient inquires about whether or not she can go home today. From a pulmonary perspective she appears to be improving and I do not think she requires inpatient evaluation from a pulmonary standpoint. Will defer ultimate disposition to the patient's primary care team. The patient is well-established with the pulmonary and ID groups at [facility]. Recommend that she continue to follow with them. She has seen Dr. Dhaliwal as well but would recommend that she follow-up with [facility] to maintain continuity of care. Pulmonary will sign off at this point time as the patient's pulmonary issues appear to be stable to improving. Feel free to contact us with additional questions or concerns History of Present Illness Attending Physician: Sujey Stevenson MD History of Present Illness Asked by hospitalist to evaluate this patient with known nontuberculous mycobacteria/M abscessus infection currently under the care of ID and [facility] pulmonary. This 41-year-old female has a history of bronchiectasis and a history of MAC status post lobectomy in [facility]. She developed persistent tree-in-bud opacities and had a recent bronchoscopy demonstrating M abscessus. She was seen by ID. She was initially treated with amikacin, Bactrim, and linezolid. Linezolid appears to have been discontinued due to bone marrow suppression and replaced with imipenem. She has a PICC line in place. She states that since starting the imipenem she has developed some blistering and irritation around her PICC line site. This appears to be more of a contact dermatitis associated with the dressing. She was advised to come to the emergency room. She was evaluated there. There was a question of imipenem allergy. She has been treated with steroids and H2 blockers and imipenem was added to her allergy list. ID consultation is pending. Pulmonary consult was also requested. The patient reports that she is not having any significant shortness of breath. She does feel nauseated. She has had poor appetite but has not lost any sig nificant weight. She denies cough or sputum production. She did have a repeat CT scan which demonstrated improvement in the nodularity and bronchiectasis compared to prior CT scans from 6 months ago. Allergies Allergy/AdvReac Type Severity Reaction Status Date / Time imipenem Allergy Severe chest Verified 06/05/21 22:41 pain/shortness of breath Home Medications Medication Instructions Recorded Confirmed Type tamoxifen 20 mg tablet 20 mg PO QAM 04/28/20 06/05/21 History ascorbic acid (vitamin C) 1,000 mg 1 g PO DAILY 09/22/20 06/05/21 History tablet (Vitamin C) cholecalciferol (vitamin D3) 125 125 mcg PO DAILY 09/22/20 06/05/21 History mcg (5,000 unit) tablet (Vitamin D3) acetaminophen 325 mg tablet 650 mg PO Q4H PRN #100 tab 09/26/20 06/05/21 Rx albuterol sulfate 90 mcg/actuation 2 inh INHALATION Q4H PRN #8.5 g 09/26/20 06/05/21 Rx aerosol inhaler Flutter Valve #1 ea 10/27/20 06/05/21 Rx Vibration Vest #1 ea 10/27/20 06/05/21 Rx nebulizers #1 ea 12/29/20 06/05/21 Rx sodium chloride 7 % for 4 ml INHALATION BID #240 ml 12/29/20 06/05/21 Rx nebulization ipratropium 0.5 mg-albuterol 3 mg 3 ml INHALATION BID #180 ml 01/19/21 06/05/21 Rx (2.5 mg base)/3 mL nebulization soln amikacin 1,250 mg IV [id number] 06/05/21 06/05/21 History sulfamethoxazole 800 1 tab PO BID 06/05/21 06/05/21 History mg-trimethoprim 160 mg tablet Patient History Medical History Bronchiectasis Bronchiectasis Cough productive of purulent sputum Cough with hemoptysis Encounter for immunization 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 Pneumonia Surgical History History of left mastectomy History of lobectomy of lung Family History Father Colorectal cancer Aunt Uterine cancer paternal Grandfather (Maternal) Cancer Stomach Cancer Denies family history of Ovarian cancer Breast cancer Social History Smoking Status: Never smoker Hx Alcohol Use: No Hx Substance Use: No Preferred Language: Citizen Of [place] Communication Ability: Effective Director Of Health Care Marketing Required: No Beliefs That Will Affect Care: None Current Living Situation: Alone Other Information That Helps Us Care for You: No Feels Safe at Home: Yes Safety Concerns: Feels Safe At This Time Assistive Devices: None Review of Systems Review of Systems: All systems reviewed & are unremarkable except as noted in Subjective Physical Exam Constitutional: WD/WN, vitals as above Neck: trachea midline, no thyromegaly Respiratory: normal respiratory effort, lungs clear to auscultation Cardiovascular: RRR, no murmur, no edema Gastrointestinal (Abdomen): normal bowel sounds, soft, nontender, no hepatosplenomegaly Musculoskeletal: Extremities: extremities normal to inspection Skin: There is skin irritation around the Tegaderm overlying her PICC line with erythema and some small blister formation. No other evidence of disseminated rash. Neurologic: Nonfocal exam Lymphatic: no cervical lymphadenopathy Results & Data Results & Data ([facility] [place]) Vital Signs (Past 12 Hours) Vital Signs Temp Pulse Pulse Resp BP BP Pulse Ox 06/06/21 07:29 67 16 97 06/06/21 07:18 36.7 C 50 L 16 92/56 L 93 06/06/21 01:13 36.6 C 74 16 95/65 L 96 06/06/21 00:00 71 18 101/69 98 Critical Care Results & Data Vital Signs (Past 12 Hours) Vital Signs Temp Pulse Pulse Resp BP BP Pulse Ox 06/06/21 07:29 67 16 97 06/06/21 07:18 36.7 C 50 L 16 92/56 L 93 06/06/21 01:13 36.6 C 74 16 95/65 L 96 06/06/21 00:00 71 18 101/69 98 Lab & Micro Results (Past 24 Hours) RBC 3.57 M/uL (4.2-5.4) L 06/06/21 WBC 4.99 K/uL (4.8-10.8) 06/06/21 Hgb 10.8 g/dL (12.0-16.0) L 06/06/21 Hct 32.6 % (37-47) L 06/06/21 MCV 91.3 fL (80-100) 06/06/21 MCH 30.3 pg (25-34) 06/06/21 MCHC 33.1 g/dL (32-36) 06/06/21 RDW Standard Deviation 54.7 fL (36.4-46.3) H 06/06/21 RDW Coefficient of Variation 16.4 % (11.5-14.5) H 06/06/21 Plt Count 198 K/uL (130-400) 06/06/21 MPV 10.1 fL (7.4-10.4) 06/06/21 Neutrophils (%) (Auto) 34.5 % 06/06/21 Lymphocytes (%) (Auto) 50.7 % 06/06/21 Monocytes # (Auto) 0.30 K/uL (0.11-0.59) 06/06/21 Eosinophils # (Auto) 0.42 K/uL (0-0.5) 06/06/21 Immature Granulocyte % (Auto) 0.0 % 06/06/21 Neutrophils # (Auto) 1.72 K/uL (1.4-6.5) 06/06/21 Lymphocytes # (Auto) 2.53 K/uL (1.2-3.4) 06/06/21 Monocytes # (Auto) 0.30 K/uL (0.11-0.59) 06/06/21 Eosinophils # (Auto) 0.42 K/uL (0-0.5) 06/06/21 Basophils # (Auto) 0.02 K/uL (0-0.2) 06/06/21 Immature Granulocyte # (Auto) 0.00 K/uL (0.00-0.02) 06/06/21 Na 139 mmol/L (136-145) 06/06/21 K 3.7 mmol/L (3.5-5.1) 06/06/21 Cl 108 mmol/L (98-107) H 06/06/21 CO2 26 mmol/L (21-32) 06/06/21 Anion Gap 5 (3-11) 06/06/21 BUN 14 mg/dl (6-23) 06/06/21 Creatinine 0.71 mg/dl (0.6-1.2) 06/06/21 Estimated GFR ( Amer) 123.5 ml/min 06/06/21 Estimated GFR (Non-Af Amer) 106.5 ml/min 06/06/21 BUN/Creatinine Ratio 19.7 (10-20) 06/06/21 Glu 82 mg/dl (70-99(Fasting)) 06/06/21 Ca 8.2 mg/dl (8.5-10.1) L 06/06/21 Mg 1.8 mg/dl (1.7-2.4) 06/05/21 22:40 06/05/21 Calcium Level 8.2 mg/dl (8.5-10.1) L 06/06/21 05:30 06/06/21 Prothromb Time International Ratio 1.0 (0.9-1.1) 06/05/21 18:14 06/05/21 Diagnostic Findings (Past 24 Hours) Chest X-Ray 06/05/21 20:14 XR chest 1V portable CLINICAL HISTORY: Atypical chest pain TECHNIQUE: Single frontal radiograph of the chest was obtained. Comparison: Comparison is made to chest 2 views 10/26/2020 FINDINGS: A right PICC catheter terminates in the mid SVC. The cardiomediastinal silhouette is normal. The lungs are clear. No evidence of pleural effusion or pneumothorax. IMPRESSION: No acute chest disease. Satisfactory placement of the right PICC catheter. ACT 112: Negative or not required by law. Electronically signed by: Bib Garcia M.D. 06/05/2021 8:45 PM Chest CTA 06/05/21 20:15 CT angio chest PE protocol CLINICAL HISTORY: Chest Pain, eval for PE TECHNIQUE: Multidetector row helical CT of the chest was performed with angiographic protocol. Coronal and sagittal reformations were obtained. Coronal and sagittal MIPS were obtained from the axial data set and were submitted for review. Automated dose lowering techniques and/or adjustment according to patient size were utilized for this exam. CT DOSE: 238.98 mGy.cm Comparison: Comparison is made to CT chest 09/22/2020 FINDINGS: Lungs and pleura: Tree-in-bud nodularity is noted primarily in the lower lungs. Heart and pericardium: Heart size is normal. No pericardial effusion. Vessels: No evidence of pulmonary embolism. Mediastinum and conor: A right hilar node measures 10 mm. Additional smaller mediastinal and hilar lymph nodes are seen. Chest wall and lower neck: Subcentimeter axillary lymph nodes noted. Abdomen: Unremarkable. Bones: Degenerative changes in the thoracic spine. IMPRESSION: 1. No evidence of pulmonary embolism. 2. Tree in bud nodularity in the lower lungs compatible with infectious/inflammatory etiology. Prominent lymph nodes are likely reactive. ACT 112: Negative or not required by law. Electronically signed by: Bib Garcia M.D. 06/05/2021 9:41 PM Venous Doppler Study 06/05/21 23:38 US venous doppler UE RT CLINICAL HISTORY: RUE swelling at PICC insertion Procedure: side upper extremity real-time compression venous ultrasound with Duplex and Color Doppler imaging. Utilizing real-time ultrasonic imaging multiple real time high-resolution ultrasonic images of the deep venous system were performed from the forearm through the subclavian vein including evaluation of the jugular vein. Compression real time ultrasonic imaging was performed in addition to color Doppler imaging and duplex Doppler ultrasound with velocity spectral profile analysis. There is a very small basilic vein with the PICC catheter seen. Little or no flow is seen around the PICC line and the vessel was not fully compressing around the PICC line from its proximal to mid aspect. No definite thrombus can be identified. The study is limited by bandaging, the PICC line and the IVC. There is otherwise normal compressibility of the deep venous system from the forearm through the subclavian vein. Normal vascular flow is currently identified. No evidence of acute thrombosis is identified. Impression: 1. Limited study as described above. There is a very small basilic vein with the PICC line in place. Little to no flow is seen around the PICC line and the vessel was not fully compressing around the PICC line. However, no definite thrombus is identified. 2. No other evidence of deep venous thrombus. ACT 112: Negative or not required by law. Electronically signed by: Eliot Corley M.D. 06/06/2021 8:10 AM I & O Totals 24 Hours 06/05/21 06/06/21 06/07/21 06:59 06:59 06:59 Intake Total 1077 / 1077 Output Total 1400 / 1400 400 / 400 Balance -323 / -323 -400 / -400 Cumulative 06/05/21 18:00 thru 06/06/21 09:48 Intake Total 1077 Output Total 1800 Balance -723 RT Ventilator Mngmt (Last Documented) Ventilator Ordered Settings Respiratory Rate 16 06/06/21 07:29 Ventilator - PT Measurements Respiratory Rate 16 PG Care Time/CCT Total # of Minutes Spent Total Time Spent with Patient: Total time spent is greater than 50% in coordination of care (as documented) at patient's floor/unit and/or counseling patient: Coding Level of Care Code 38337 Inpt Consult Level 4 Diagnoses 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
[2021-06-06] MEDS ORDERED: AMIKACIN CONSULT ACTIVE PRN (11:25)
--- NOTE | 2021-06-06 11:49 | Pharmacy Report ---
Pharmacy [facility] Short Note - Date of Service June 06, 2021 - Assessment & Plan Assessment 41 year old F receiving amikacin for treatment of mycobacteria infection. Pertinent microbiologic data includes: N/A. Day # 1 of antimicrobial therapy inhouse. Patient has been on antibiotics as an outpatient for several weeks. Plan Amikacin * met with patient and confirmed she is still receiving amikacin + what dose. Patient had a dose of antibiotics with her and I confirmed the dose. * Explained to patient that we do not perform amikacin levels inhouse and will therefore most likely defer to outpatient dosing. * Ordered one time dose of amikacin for today as ID has not seen patient. Provider to discuss antibiotics with ID later today. * Defer future dosing to outcomes of these discussions. Pharmacy will continue to follow and will adjust dose/frequency as necessary. Thank you.
[2021-06-06] MEDS ORDERED: AMIKACIN SULFATE 1,250 MG in DEXTROSE 5% 250 ML IV ONE (12:00)
--- NOTE | 2021-06-06 12:39 | Hospitalist Progress Note ---
Date of Service June 06, 2021 Assessment & Plan (1) Allergic reaction: (2) Bronchiectasis: (3) Mycobacterium abscessus infection: (4) History of MAC infection: Plan: Bronchiectasis mycobacterium abscessus infection Pt admitted to med/surg appreciate pulmonary consult Await infectious disease recommendations continue IV amikacin, IV imipenim is on hold, continue oral bactrim continue pulmonary toilet Rash RUE PICC line in place rash to RUE appears to be more of a contact dermatitis vs rash from antibiotic would expect more systemic reaction Venous duplex negative for clot but limited compressibility IV team reassessed and removed netting, with hydrocortisone and removal of netting already noted improving redness AC peripheral site was removed, IV team feels PICC site adequate and does not require removal at this time claritin daily, hydrocortisone to rash awaiting ID recs prior to d/c Hx of breast ca, s/p L mastectomy 2019 continue tamoxifen dvt ppx: SQ heparin Dispo: med/surg, awaiting ID eval FULL CODE PCP: [facility] Pt was seen and examined in collaboration with DR. Stevenson, please see addendum Admission and Anticipated Discharge Date Admission Date: June 05, 2021 Subjective 06/06/21 Pt was seen and examined in room 388-1. F/U Rash to RUE surrounding PICC site. Pt states picc places Mid April. She has been on IV amikacin since then and imipenim for the past 1.5 weeks. She follows with pulm and ID at [facility]. She feels the rash started 1 week ago and slowly worsened, got more swollen and red. She denies f/c/s, chest pain, sob, n/v/d. Good appetite. SHe has known bronchiectasis and mycobacterium abscess. She underwent full w/u for bronchiectasis and felt 2/2 to myocobacteria as autoimmune and CF serologies were negative. Review of Systems Review of Systems: All systems reviewed & are unremarkable except as noted in HPI & below Physical Exam Physical Exam: Gen: WD/WN, F, NAD, A&O x3 HEENT: Normocephalic, atraumatic, conjunctivae moist, sclerae anicteric, mucous membranes moist. Lung: Clear to Auscultation bilaterally, no wheezes/rales/rhonchi Heart: Regular rate, regular rhythm, no murmurs, rubs, or gallops Abdomen: Soft, NT, ND +BS x 4 Extremities: RUE PICC in place, surrounding edema, no warmth, evidence of dermatitis Skin: Warm, negative turgor. Results & Data Results & Data ([facility]) Vital Signs (Past 12 Hours) Vital Signs Temp Pulse Resp BP Pulse Ox 06/06/21 07:29 67 16 97 06/06/21 07:18 36.7 C 50 L 16 92/56 L 93 06/06/21 01:13 36.6 C 74 16 95/65 L 96 Laboratory Results Short CBC 06/05/21 06/06/21 Range/Units 18:14 05:30 WBC 5.87 4.99 (4.8-10.8) K/uL Hgb 11.7 L 10.8 L (12.0-16.0) g/dL Hct 35.5 L 32.6 L (37-47) % Plt Count 231 198 (130-400) K/uL BMP 06/05/21 06/06/21 18:14 05:30 Sodium 133 L 139 Potassium 4.1 3.7 Chloride 101 108 H Carbon Dioxide 25 26 BUN 19 14 Creatinine 0.91 0.71 Glucose 134 H 82 Calcium 9.1 8.2 L Diagnostic Findings Chest X-Ray 06/05/21 20:14 XR chest 1V portable CLINICAL HISTORY: Atypical chest pain TECHNIQUE: Single frontal radiograph of the chest was obtained. Comparison: Comparison is made to chest 2 views 10/26/2020 FINDINGS: A right PICC catheter terminates in the mid SVC. The cardiomediastinal silhouette is normal. The lungs are clear. No evidence of pleural effusion or pneumothorax. IMPRESSION: No acute chest disease. Satisfactory placement of the right PICC catheter. ACT 112: Negative or not required by law. Electronically signed by: Bib Garcia M.D. 06/05/2021 8:45 PM Chest CTA 06/05/21 20:15 CT angio chest PE protocol CLINICAL HISTORY: Chest Pain, eval for PE TECHNIQUE: Multidetector row helical CT of the chest was performed with angiographic protocol. Coronal and sagittal reformations were obtained. Coronal and sagittal MIPS were obtained from the axial data set and were submitted for review. Automated dose lowering techniques and/or adjustment according to patient size were utilized for this exam. CT DOSE: 238.98 mGy.cm Comparison: Comparison is made to CT chest 09/22/2020 FINDINGS: Lungs and pleura: Tree-in-bud nodularity is noted primarily in the lower lungs. Heart and pericardium: Heart size is normal. No pericardial effusion. Vessels: No evidence of pulmonary embolism. Mediastinum and conor: A right hilar node measures 10 mm. Additional smaller mediastinal and hilar lymph nodes are seen. Chest wall and lower neck: Subcentimeter axillary lymph nodes noted. Abdomen: Unremarkable. Bones: Degenerative changes in the thoracic spine. IMPRESSION: 1. No evidence of pulmonary embolism. 2. Tree in bud nodularity in the lower lungs compatible with infectious/inflammatory etiology. Prominent lymph nodes are likely reactive. ACT 112: Negative or not required by law. Electronically signed by: Bib Garcia M.D. 06/05/2021 9:41 PM Venous Doppler Study 06/05/21 23:38 US venous doppler UE RT CLINICAL HISTORY: RUE swelling at PICC insertion Procedure: side upper extremity real-time compression venous ultrasound with Duplex and Color Doppler imaging. Utilizing real-time ultrasonic imaging multiple real time high-resolution ultrasonic images of the deep venous system were performed from the forearm through the subclavian vein including evaluation of the jugular vein. Compression real time ultrasonic imaging was performed in addition to color Doppler imaging and duplex Doppler ultrasound with velocity spectral profile analysis. There is a very small basilic vein with the PICC catheter seen. Little or no flow is seen around the PICC line and the vessel was not fully compressing around the PICC line from its proximal to mid aspect. No definite thrombus can be identified. The study is limited by bandaging, the PICC line and the IVC. There is otherwise normal compressibility of the deep venous system from the forearm through the subclavian vein. Normal vascular flow is currently identified. No evidence of acute thrombosis is identified. Impression: 1. Limited study as described above. There is a very small basilic vein with the PICC line in place. Little to no flow is seen around the PICC line and the vessel was not fully compressing around the PICC line. However, no definite thrombus is identified. 2. No other evidence of deep venous thrombus. ACT 112: Negative or not required by law. Electronically signed by: Eliot Corley M.D. 06/06/2021 8:10 AM Medications Administered Current Inpatient Medications Acetaminophen (Acetaminophen 325 Mg Tab) 650 mg PO Q4H PRN PRN Reason: fever or pain Stop: 07/06/21 01:10 Albuterol (Albut/Ipratrop 3mg/0.5mg Neb 3 Ml Vial) 3 ml NEB Q2H PRN; Protocol PRN Reason: Wheezing Stop: 07/06/21 01:10 Amikacin Sulfate (Amikacin Consult Active) 1 ea N/A UD PRN PRN Reason: Consult Stop: 07/06/21 11:24 Diphenhydramine HCl (Diphenhydramine 50 Mg/Ml Vial) 12.5 mg IV Q4H PRN PRN Reason: Allergic Reaction Stop: 07/06/21 01:10 Heparin Sodium (Beef Lung) (Heparin 10 Unit/Ml 5 Ml Flush) 5 ml FLUSH PRN PRN PRN Reason: Flush Stop: 07/06/21 02:52 Heparin Sodium (Porcine) (Heparin Sod 5,000 Unit/0.5 Ml Vial) 5,000 units SQ Q8 PORTER Stop: 07/06/21 05:59 Last Admin: 06/06/21 12:29 Dose: 5,000 units Documented by: Sodium Chloride (Nss 1000ml) 1,000 mls @ 60 mls/hr IV .[id number] ONE Stop: 06/06/21 15:13 Last Infusion: 06/06/21 01:36 Dose: 60 mls/hr Documented by: Promethazine HCl 6.25 mg/ (Sodium Chloride) 50.25 mls @ 201 mls/hr IV Q6H PRN PRN Reason: Nausea And Vomiting Stop: 07/06/21 01:10 Amikacin Sulfate 1,250 mg/ (Dextrose) 255 mls @ 250 mls/hr IV NOW ONE Stop: 06/06/21 13:01 Last Admin: 06/06/21 12:29 Dose: 250 mls/hr Documented by: Sodium Chloride (Sodium Chlor 7% 4 Ml Neb) 4 ml INH BID PORTER Stop: 07/06/21 08:59 Last Admin: 06/06/21 07:29 Dose: 4 ml Documented by: Tamoxifen Citrate (Tamoxifen Citrate 10 Mg Tablet) 20 mg PO QAM PORTER Stop: 07/06/21 08:59 Last Admin: 06/06/21 08:06 Dose: 20 mg Documented by: Trimethoprim/Sulfamethoxazole (Sulfamethoxazole/Trimethoprim Ds 800/160mg Tab) 1 tab PO BID PORTER Stop: 06/13/21 08:59 Last Admin: 06/06/21 08:06 Dose: 1 tab Documented by: (1) Allergic reaction Encounter type: initial encounter Qualified Code(s): T78.40XA - Allergy, unspecified, initial encounter (2) Bronchiectasis Bronchiectasis type: uncomplicated Qualified Code(s): J47.9 - Bronchiectasis, uncomplicated
[2021-06-06] MEDS: LORATADINE 10 MG TAB PO SCH (13:26)
[2021-06-06] MEDS: HYDROCORTISONE 1% CRM 30 GM TUBE EXT SCH ×2 (13:27→21:26)
[2021-06-07] MEDS: HEPARIN SOD 5,000 UNIT/0.5 ML VIAL SQ SCH ×2 (05:22→13:10)
[2021-06-07 06:16] LABS: Hematocrit (blood only) 35.7 % (37-47); Hemoglobin 11.9 g/dL (12.0-16.0); Mean Corpuscular Hemoglobin 30.5 pg (25-34); Mean Corpuscular Hgb Conc 33.3 g/dL (32-36); Mean Corpuscular Volume 91.5 fL (80-100); Mean Platelet Volume 9.9 fL (7.4-10.4); Platelet Count 196 K/uL (130-400); RDW Coefficient of Variation 16.2 % (11.5-14.5); RDW Standard Deviation 53.7 fL (36.4-46.3); White Blood Count 4.73 K/uL (4.8-10.8)
[2021-06-07 06:40] LABS: Basophils # (auto) 0.02 K/uL (0-0.2); Basophils % (auto) 0.4 %; Eosinophils # (auto) 0.62 K/uL (0-0.5); Eosinophils % (auto) 13.1 %; Lymphocytes # (auto) 2.65 K/uL (1.2-3.4); Monocytes # (auto) 0.35 K/uL (0.11-0.59); Monocytes % (auto) 7.4 %; Neutrophils # (auto) 1.09 K/uL (1.4-6.5); Neutrophils % (auto) 23.1 %
[2021-06-07 06:48] LABS: Albumin Globulin Ratio 1.5 (0.9-2); Albumin Level 3.7 gm/dl (3.4-5.0); BUN Creatinine Ratio 20.8 (10-20); Bilirubin,Total 0.6 mg/dl (0.2-1.0); Calcium 8.8 mg/dl (8.5-10.1); Creatinine Clr Calc Pharmacy 84.4 ml/min; Est GFR (African American) 121.4 ml/min; Est GFR (Non-African American) 104.8 ml/min; Globulin 2.4 gm/dl (2.5-4.0); Potassium 3.6 mmol/L (3.5-5.1); Total Protein 6.1 gm/dl (6.0-8.3)
[2021-06-07] MEDS: SODIUM CHLOR 7% 4 ML NEB INH SCH ×2 (07:49→11:28)
[2021-06-07] MEDS: TAMOXIFEN CITRATE 10 MG TABLET PO SCH (09:39)
[2021-06-07] MEDS: LORATADINE 10 MG TAB PO SCH (09:39)
[2021-06-07] MEDS: HYDROCORTISONE 1% CRM 30 GM TUBE EXT SCH (09:39)
[2021-06-07] MEDS: SULFAMETHOXAZOLE/TRIMETHOPRIM DS 800/160MG TAB PO SCH (09:39)
--- NOTE | 2021-06-07 14:27 | Discharge Summary ---
Date of Service June 07, 2021 Admission HPI Per Admitting Provider History obtained from patient and records. 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 Last confinement September 2020 for Klebsiella pneumonia. Patient started by [facility] on IV amikacin via PICC line, Bactrim, and linezolid for NTM pneumonia. 2 weeks ago, ID specialist recommended stopping linezolid due to bone marrow suppression. Imipenem initiated last week. Patient felt weird after first dose of imipenem last week. Small rashes noted on right upper extremity PICC line site. Recurrent symptoms noted with every administration of antibiotic. 2 days ago, patient PICC line site noted to be oozing and bubbling around the bandage. This afternoon, patient experience chest pain and shortness of breath after administration of IV imipenem. Patient directed to ER for evaluation by outpatient providers. Admission Exam Per Admitting Provider GENERAL: Comfortable, slightly anxious, no respiratory distress SKIN: Pallor, warm HEENT: Pale palpebral conjunctivae, no ptosis, dry buccal mucosa NECK : Supple, no tenderness CHEST : Decreased breath sounds, no tenderness HEART : RRR, no obvious murmurs ABDOMEN: No distention, nontender EXTREMITIES : PICC line over RUE, note of maculopapular rash over tender RUE swelling, no LE swelling/tenderness NEUROLOGIC : Coherent, no facial asymmetry, no other gross focality Principal Diagnosis Dermatitis Possible Allergic Drug Reaction Discharge Exam Gen: WD/WN, F, NAD, A&O x3 HEENT: Normocephalic, atraumatic, conjunctivae moist, sclerae anicteric, mucous membranes moist. Lung: Clear to Auscultation bilaterally, no wheezes/rales/rhonchi Heart: Regular rate, regular rhythm, no murmurs, rubs, or gallops Abdomen: Soft, NT, ND +BS x 4 Extremities: RUE PICC in place, erythematous maculo papluar rash noted to RUE extending from wrist to R ACW, pt scratching Skin: Warm, negative turgor. Discharge Data Allergies Allergy/AdvReac Type Severity Reaction Status Date / Time imipenem Allergy Severe chest Verified 06/05/21 22:41 pain/shortness of breath Consultations 06/05/21 22:13 ED Decision to Admit Stat 06/05/21 23:38 Consult Pulmonology Routine 06/06/21 01:11 Consult Infectious Diseases Routine Ordered Studies Chest X-Ray 06/05/21 20:14 XR chest 1V portable CLINICAL HISTORY: Atypical chest pain TECHNIQUE: Single frontal radiograph of the chest was obtained. Comparison: Comparison is made to chest 2 views 10/26/2020 FINDINGS: A right PICC catheter terminates in the mid SVC. The cardiomediastinal silhouette is normal. The lungs are clear. No evidence of pleural effusion or pneumothorax. IMPRESSION: No acute chest disease. Satisfactory placement of the right PICC catheter. ACT 112: Negative or not required by law. Electronically signed by: Bib Garcia M.D. 06/05/2021 8:45 PM Chest CTA 06/05/21 20:15 CT angio chest PE protocol CLINICAL HISTORY: Chest Pain, eval for PE TECHNIQUE: Multidetector row helical CT of the chest was performed with angiographic protocol. Coronal and sagittal reformations were obtained. Coronal and sagittal MIPS were obtained from the axial data set and were submitted for review. Automated dose lowering techniques and/or adjustment according to patient size were utilized for this exam. CT DOSE: 238.98 mGy.cm Comparison: Comparison is made to CT chest 09/22/2020 FINDINGS: Lungs and pleura: Tree-in-bud nodularity is noted primarily in the lower lungs. Heart and pericardium: Heart size is normal. No pericardial effusion. Vessels: No evidence of pulmonary embolism. Mediastinum and conor: A right hilar node measures 10 mm. Additional smaller mediastinal and hilar lymph nodes are seen. Chest wall and lower neck: Subcentimeter axillary lymph nodes noted. Abdomen: Unremarkable. Bones: Degenerative changes in the thoracic spine. IMPRESSION: 1. No evidence of pulmonary embolism. 2. Tree in bud nodularity in the lower lungs compatible with infectious/inflammatory etiology. Prominent lymph nodes are likely reactive. ACT 112: Negative or not required by law. Electronically signed by: Bib Garcia M.D. 06/05/2021 9:41 PM Venous Doppler Study 06/05/21 23:38 US venous doppler UE RT CLINICAL HISTORY: RUE swelling at PICC insertion Procedure: side upper extremity real-time compression venous ultrasound with Duplex and Color Doppler imaging. Utilizing real-time ultrasonic imaging multiple real time high-resolution ultrasonic images of the deep venous system were performed from the forearm thr ough the subclavian vein including evaluation of the jugular vein. Compression real time ultrasonic imaging was performed in addition to color Doppler imaging and duplex Doppler ultrasound with velocity spectral profile analysis. There is a very small basilic vein with the PICC catheter seen. Little or no flow is seen around the PICC line and the vessel was not fully compressing around the PICC line from its proximal to mid aspect. No definite thrombus can be identified. The study is limited by bandaging, the PICC line and the IVC. There is otherwise normal compressibility of the deep venous system from the forearm through the subclavian vein. Normal vascular flow is currently identified. No evidence of acute thrombosis is identified. Impression: 1. Limited study as described above. There is a very small basilic vein with the PICC line in place. Little to no flow is seen around the PICC line and the vessel was not fully compressing around the PICC line. However, no definite thrombus is identified. 2. No other evidence of deep venous thrombus. ACT 112: Negative or not required by law. Electronically signed by: Eliot Corley M.D. 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 She also complains of rash to her right upper extremity in the area of her PICC line. Patient has been on amikacin IV since mid April. PICC line is also been in place since mid April. She previously was also on Bactrim and Zyvox; however, Zyvox was discontinued secondary to myelosuppression and she was placed on IV imipenem. She started IV imipenem approximately 1-1/2 weeks ago. It is noted that she feels rash did start prior to administration of imipenem. While admitted she was seen and evaluated by pulmonology. Pulmonology felt there was nothing from a pulmonary perspective; however, it was felt her rash may be secondary to contact dermatitis. She was seen and evaluated by IV team who removed the covered netting and hydrocortisone cream was applied. It does seem that the redness improved. Infectious disease was consulted for further management of antibiotics. Patient was adamant about getting PICC line removed. Per infectious disease consultation she wishes to also stop IV antibiotics. Infectious disease is unsure if her infection can be fully treated with dual oral antibiotic therapy. Dr. Diaz will discuss with Dr. Marino about obtaining clofazimine. Patient has been set up with outpatient dermatology for FridayJune 11. She will also follow-up with infectious disease as outpatient as soon as available to determine appropriate antibiotic regimen moving forward. For now she will remain on IV antibiotics. She will continue topical treatment with hydrocortisone cream as well as oral antihistamines as needed. At time of discharge she was in good spirits and PICC line has since been removed. She was otherwise hemodynamically stable, tolerating regular diet, afebrile and saturating well on room air. Total Time Total Time Spent Total Time Spent (In Minutes): 35 minutes Discharge Plan Discharge Items Patient Disposition: Home - Self-Care Reason For Visit: SOB, ALLERGIC RXN Discharge Diagnosis: Dermatitis Possible Allergic Drug Reaction Activity: Resume your previous activity Bathing: No limitations Driving/Machine Use: Resume 1 day after discharge Weightbearing: Full weightbearing Non-emergency contact: Primary Care Provider Call non-emergency contact if: you have any medication questions, your symptoms worsen, your pain is not controlled, your pain is worsening, your pain is unusual for you, your pain is concerning for you, you have a fever and your temperature is above 101.5 Follow-up/Referrals: Sheila Robin MD [Primary Care Provider] - (Date & Time 06/12/2021 11:00 AM Provider Sheila Robin MD Department General Internal Medicine [facility] ) Juan Carlos Prieto MD [Physician] - 06/11/21 12:45 pm Diet: Regular Addtl Attending Provider Instructions: MEDICATION CHANGES: Per Infectious Disease you will be stopping your IV antibiotics. Please continue all other medications, including oral antibiotic Bactrim. You may take over the counter Claritin, 10mg daily as needed for itching. You have also use over the counter Hydrocortisone cream 1%, apply to rash twice daily x 2 weeks. SUMMARY OF TEST RESULTS: You came to hospital due to chest pain, shortness of breath and rash to your right arm. There was concern you may have been having an allergic reaction to IV antibiotic Imipenem. You were seen by IV team and dressing was changed, but rash persisted. Your other peripheral IV site was removed. After seeing infectious disease you wished for PICC Line to be removed and IV antibiotics to be stopped. PICC LINE was removed. You will follow up as outpatient with Infectious Disease and Dermatology. PENDING TEST RESULTS: None RECOMMENDATIONS FOR FOLLOW-UP: Please Follow Up with your Infectious Disease Provider as soon as possible following discharge to determine your antibiotic regimen. Please keep follow up with Dermatology, June 11, 2021 at 12:45 p.m. [facility] from hospital, [address]. Please take your medication list with you to all appointments. OTHER INSTRUCTIONS: Seek medical attention if you have: * temperature above 101 * chest pain or trouble breathing * abdominal pain, nausea, vomiting * diarrhea, dark stools or bloody stools * any unanswered questions or concerns Call 911 if symptoms are severe. Please take good care of yourself. It has been a pleasure taking care of you. Please take care of yourself. If you have any questions regarding your recent hospitalization please contact [facility] and request Mckayla Beauist @ [phone]. Evita Bowie PA-C Pending Studies at Discharge: No Stand-Alone Forms: My [facility], Smoking Cessation Medications and DC Order Prescriptions: New hydrocortisone 1 % Ointment 1 applic EXT BID Qty: 28.35 RF: 0 loratadine [Wal-itin] 10 mg Tablet 10 mg PO QAM Qty: 30 RF: 0 Continued ipratropium-albuterol 0.5 mg-3 mg(2.5 mg base)/3 mL solution for nebulization 3 ml inhalation BID Qty: 180 RF: 0 tamoxifen 20 mg tablet 20 mg PO QAM RF: 0 (DME) Flutter Valve Device See Rx Instructions .Route Qty: 1 RF: 0 (DME) Vibration Vest Misc See Rx Instructions .Route Qty: 1 RF: 0 (DME) nebulizers Misc See Rx Instructions .Route Qty: 1 RF: 0 sodium chloride 7 % solution for nebulization 4 ml inhalation BID Qty: 240 RF: 0 ascorbic acid (vitamin C) [Vitamin C] 1,000 mg Tablet 1 g PO DAILY RF: 0 cholecalciferol (vitamin D3) [Vitamin D3] 125 mcg (5,000 unit) Tablet 125 mcg PO DAILY RF: 0 acetaminophen 325 mg Tablet 650 mg PO Q4H PRN (Reason: fever or pain) Qty: 100 RF: 0 albuterol sulfate 90 mcg/actuation HFA aerosol inhaler 2 inh inhalation Q4H PRN (Reason: shortness of breath or wheezing) Qty: 8.5 RF: 0 sulfamethoxazole-trimethoprim 800-160 mg Tablet 1 tab PO BID RF: 0 Discontinued amikacin 1,250 mg IV 3XWK RF: 0 Discharge Orders: Discharge Order (Routine); Ordered 06/07/21 Ordered By: Evita Bowie Admission Data Admit Date/Time: 06/05/21 23:11 Attending Provider: Sujey Stevenson Admit Provider: Romie Marie Primary Care Provider: Sheila Robin Other Providers: Romie Marie ; Mathew Mccarthy ; Hiro Dhaliwal ; Fredy Barker ; Jai Mariano ; Austyn Carroll ; Newton Damico ; John Meier I. ; Sajan Marino II ; Domenica Camp ; Karthikeyan Phelps ; Rohan Diaz ; Evita Bowie
== END 2021-06-07 15:30 | disposition home or self-care (01) ==
LOC: ED 18:00 → 3N 18:00